=== PATIENT | female | born 1950 | race Caucasian/White ===

== ENCOUNTER 2018-06-18 00:38 | Outpatient (CLI) | payer BC, SELFPAY ==
--- NOTE | 2018-06-18 13:31 | DI.REPORT_ITS ---
SYMPTOM/DIAGNOSIS: F/U ADULT IDIOPATHIC GENERALIZED OSTEOPOROSIS, M81.8 DEXA SCAN: Routine examination. Comparison is made with 2016. Evaluation of the left hip shows a total T score of -2.0 and a Z score of -0.7. This is consistent with osteopenia and an increased fracture risk. This compares with a total T score of -2.2 from 2016. Evaluation of the lumbar spine shows a total T score of - 1.9 and a Z score of -0.1. This is also consistent with osteopenia and an increased fracture risk. This compares with a total T score of -1.8 from 2016. The lateral view of the spine shows no compression deformities. IMPRESSION: Osteopenia in the lumbar spine and left hip.
== END 2018-06-18 00:39 ==
PROVIDERS: PCP Family Medicine; Visit Provider Nurse Practitioner
DX: M85.88 Other specified disorders of bone density and structure, other site (principal)
CPT/HCPCS: 77080

== ENCOUNTER 2018-11-01 09:13 | Outpatient (CLI) | payer BC, SELFPAY ==
[2018-11-01 10:48] LABS: Anion Gap 7.9 mmol/L (3-11); BUN 16 mg/dL (7-18); CO2 30.1 mmol/L (21.0-32.0); CREATININE 0.67 mg/dL (0.55-1.02); Calcium 9.3 mg/dL (8.5-10.1); Chloride 102 mmol/L (98-107); Glucose 130 mg/dL (70-100); Potassium 4.5 mmol/L (3.5-5.1); Sodium 140 mmol/L (136-145)
== END 2018-11-01 09:33 ==
PROVIDERS: PCP Family Medicine; Visit Provider Dermatology
DX: L64.9 Androgenic alopecia, unspecified (principal); Z79.899 Other long term (current) drug therapy
CPT/HCPCS: 36415; 80048

== ENCOUNTER 2018-11-11 16:27 | Outpatient (CLI) | payer BC, SELFPAY ==
[2018-11-11 20:13] LABS: Cholesterol 206 mg/dL (50-200); HDL Cholesterol 68 mg/dL (40-60); LDL CHOLESTEROL 110 mg/dL (<100); Triglyceride 154 mg/dL (30-150)
[2018-11-11 21:06] LABS: Hemoglobin A1C 5.6 % (4.5-6.2)
== END 2018-11-11 16:47 ==
PROVIDERS: PCP Family Medicine; Visit Provider Family Medicine
DX: R73.03 Prediabetes (principal); E78.5 Hyperlipidemia, unspecified
CPT/HCPCS: 36415; 80061; 83721; 83036

== ENCOUNTER 2019-03-12 11:38 | Outpatient (CLI) | payer BC, SELFPAY ==
[2019-03-12 12:51] LABS: Abs Immature Grans 0.02 k/cumm (0.0-0.09); Absolute Basophil Count 0.02 k/cumm (0.0-0.2); Absolute Eosinophil Count 0.11 k/cumm (0.0-0.7); Absolute Lymphocyte Count 2.59 k/cumm (1.2-3.4); Absolute Monocyte Count 0.61 k/cumm (0.11-0.7); Absolute Neutrophil Count 4.27 k/cumm (1.2-6.7); Basophils % 0.3; Eosinophils % 1.4; HCT 42.3 % (36.0-46.0); HGB 13.9 g/dL (12.0-15.5); Immature Grans % 0.3; Mean Corp. HGB Concentration 32.9 g/dL (32.0-36.0); Mean Corpuscular Hemoglobin 31.4 pg (27.0-33.0); Mean Corpuscular Volume 95.7 fL (80-95); Mean Platelet Volume 10.2 fL (8.0-11.0); Platelet Count 254 x1000/uL (130-400); RBC 4.42 m/cumm (4.00-5.20); RBC Distribution Width 13.3 % (11.7-14.6); White Blood Cell Count 7.62 k/cumm (4.4-10.8)
[2019-03-12 13:07] LABS: ALT 39 U/L (12-78); AST 19 U/L (15-37); Albumin 3.8 g/dL (3.4-5.0); Alkaline Phosphatase 46 U/L (46-116); Anion Gap 4.4 mmol/L (3-11); BUN 16 mg/dL (7-18); Bilirubin, Total 0.3 mg/dL (0.2-1.0); CO2 33.6 mmol/L (21.0-32.0); CREATININE 0.76 mg/dL (0.55-1.02); Calcium 9.1 mg/dL (8.5-10.1); Chloride 101 mmol/L (98-107); Glucose 108 mg/dL (70-100); Potassium 4.9 mmol/L (3.5-5.1); Sodium 139 mmol/L (136-145); TSH (W/Ref FT4) 1.74 uIU/mL (0.358-3.74); Total Protein 6.8 g/dL (6.4-8.2)
[2019-03-12 14:12] LABS: Bilirubin Negative (Negative); Blood Negative (Negative); Clarity Cloudy; Glucose Negative (Negative); Ketones Negative (Negative); Leukocyte Esterase Negative (Negative); Nitrite Negative (Negative); Specific Gravity 1.015 (1.005-1.025); Urobilinogen 0.2 EU/dL (Up TO 0.2); pH 8.5 (5-8)
== END 2019-03-12 11:58 ==
PROVIDERS: PCP Family Medicine; Visit Provider Family Medicine
DX: R53.83 Other fatigue (principal)
CPT/HCPCS: 36415; 80053; 81003; 84443; 85025

== ENCOUNTER 2019-04-02 01:39 | Outpatient (CLI) | payer BC, SELFPAY ==
--- NOTE | 2019-04-02 07:00 | DI.US_ITS ---
SYMPTOM/DIAGNOSIS: ABD DISTENSION, FATIGUE, R14.0 ABDOMEN ULTRASOUND: Comparison is made with 07/25/16. The liver is normal in size and echogenicity. No focal liver lesions or biliary dilatation is seen. The gallbladder is unremarkable, without evidence of stones or wall thickening. There is minimal dilatation of the right intrarenal collecting system which appears stable when compared with previous ultrasound and previous IVP. The kidneys are normal in size and show normal parenchymal thickness and echogenicity. An incidental calcification is seen in the spleen is normal in size. The left kidney is unremarkable. No ascites is seen. IMPRESSION: No acute abnormality.
== END 2019-04-02 01:59 ==
PROVIDERS: PCP Family Medicine; Visit Provider Family Medicine
DX: R14.0 Abdominal distension (gaseous) (principal); R53.83 Other fatigue
CPT/HCPCS: 76700

== ENCOUNTER 2019-04-03 00:56 | Outpatient (CLI) | payer BC, SELFPAY ==
--- NOTE | 2019-04-03 10:55 | DI.MAMMO_ITS ---
SYMPTOMS/DIAGNOSIS: SCREENING MAMMOGRAMS: Mammograms were interpreted according to the usual protocol including computer analysis with CAD system, tomosynthesis and C view imaging. The breast tissue is of moderate radiodensity. There is no evidence of a mass. There are no suspicious calcifications and there has been no significant interval change when compared with the prior images. SUMMARY: No evidence of malignancy, category 1. Annual screening mammography is recommended. Breast density category B. MQSA ASSESSMENT OF FINDINGS: Negative. Category 1. Patient will receive a letter notifying them of these results. BI-RADS category B. There are scattered areas of fibroglandular density.
[2019-04-03 12:16] LABS: Magnesium 1.9 mg/dL (1.8-2.4)
== END 2019-04-03 01:16 ==
PROVIDERS: PCP Family Medicine; Visit Provider Family Medicine
DX: R53.83 Other fatigue (principal); Z12.31 Encounter for screening mammogram for malignant neoplasm of breast
CPT/HCPCS: 36415; 77063; 77067; 83735

== ENCOUNTER 2019-04-29 00:18 | Outpatient (CLI) | payer BC, SELFPAY ==
--- NOTE | 2019-04-29 09:48 | DI.MRI_ITS ---
SYMPTOMS/DIAGNOSIS: RIGHT SHOULDER PAIN, M25.511, OTHER SHOULDER LESIONS, M75.81, ? RIGHT ROTATOR CUFF TEAR MRI OF THE RIGHT SHOULDER: No plain films are available for comparison. Proton density and fat-suppressed T2 axial and coronal and T1 and fat-suppressed T2 sagittal sequences were performed. There is some spurring at the tip of the acromion. There are no significant degenerative changes of the AC joint. There is a full-thickness tear of the supraspinatus tendon with retraction to the level of the tip of the acromion. There is mild muscular atrophy of the supraspinatus, Goutallier grade 2. The infraspinatus, subscapularis and teres minor tendons appear intact. There is some thickening of the long head of the biceps tendon proximally but no focal tear. There is no joint effusion. There is minimal fluid in the subacromial-subdeltoid bursa. A subchondral cyst is seen in the humeral head. IMPRESSION: Full-thickness tear of the supraspinatus tendon and mild muscular atrophy.
== END 2019-04-29 00:38 ==
PROVIDERS: PCP Family Medicine; Visit Provider Student in an Organized Health Care Education/Training Program
DX: M25.511 Pain in right shoulder (principal); M75.81 Other shoulder lesions, right shoulder; M75.101 Unspecified rotator cuff tear or rupture of right shoulder, not specified as traumatic
CPT/HCPCS: 73221

== ENCOUNTER 2019-05-20 00:55 | Outpatient (CLI) | payer BC, SELFPAY ==
--- NOTE | 2019-05-20 15:01 | DI.MRI_ITS ---
SYMPTOMS/DIAGNOSIS: LEFT SHOULDER PAIN AND WEAKNESS X 1 YEAR, M75.82, LEFT SHOULDER LESIONS LEFT SHOULDER MRI: MRI examination of the shoulder was performed according to the usual protocol. Mild hypertrophic spurring noted at the acromioclavicular joint. Subchondral cysts noted at the greater tuberosity of the humerus. Minimal marginal osteophyte formation noted at the glenoid. Glenoid labrum is not well visualized. No gross tear identified on the images obtained. The biceps tendon is displaced anteriorly from the bicipital groove and shows an apparent longitudinal split tear. No retraction. The biceps anchor appears grossly intact. There is a full-thickness supraspinatus tear with retraction by approximately 2 to 2.5 cm. Non-retracted attachment tear of infraspinatus tendon appears to be present as well superiorly. Subscapularis tendinosis noted without evidence of a discrete tear. Teres minor superior edge appears frayed on the T2 coronal fat-sat images. CONCLUSION: 1. Rotator cuff tear involving predominantly supraspinatus and infraspinatus with retraction of supraspinatus by 2 to 2.5 cm. Goutallier grade 1, some fat streaks present in musculature. 2. Moderate degenerative changes of glenohumeral and acromioclavicular joints.
== END 2019-05-20 01:15 ==
PROVIDERS: PCP Family Medicine; Visit Provider Student in an Organized Health Care Education/Training Program
DX: M75.82 Other shoulder lesions, left shoulder (principal); M25.512 Pain in left shoulder; M75.102 Unspecified rotator cuff tear or rupture of left shoulder, not specified as traumatic; M19.012 Primary osteoarthritis, left shoulder
CPT/HCPCS: 73221

== ENCOUNTER 2019-06-09 14:32 | Outpatient (CLI) | payer BC, SELFPAY ==
--- NOTE | 2019-06-09 11:27 | DI.RAD_ITS ---
SYMPTOM/DIAGNOSIS: EVAL LT HIP IMPINGEMENT LEFT HIP: Two views. No bone or joint abnormality is identified. The soft tissues are unremarkable. IMPRESSION: Negative left hip
--- NOTE | 2019-06-09 11:27 | DI.RAD_ITS ---
SYMPTOM/DIAGNOSIS: RT HIP PAIN RIGHT HIP: Two views. The joint space is well maintained. No bone or joint abnormality is identified. There is a small calcification adjacent to the greater trochanter which appears old. The soft tissues are otherwise unremarkable. IMPRESSION: Negative right hip
== END 2019-06-09 14:52 ==
PROVIDERS: PCP Family Medicine; Visit Provider Student in an Organized Health Care Education/Training Program
DX: M25.851 Other specified joint disorders, right hip (principal); M25.852 Other specified joint disorders, left hip; M25.551 Pain in right hip
CPT/HCPCS: 73502

== ENCOUNTER 2019-07-15 08:59 | Outpatient (CLI) | payer BC, SELFPAY ==
--- NOTE | 2019-07-15 18:50 | HPE_ITS ---
Date of service: 07/15/19 Assessment and Plan (1) Right rotator cuff tear: Current visit: Yes Status: Acute Arthroscopic right rotator cuff repair. Details of surgery were discussed with patient as well as risks and pertinent anatomy. All questions were answered. Qualifiers: Rotator cuff tear extent: complete Rotator cuff tear trauma status: nontraumatic Qualified Code(s): M75.121 - Complete rotator cuff tear or rupture of right shoulder, not specified as traumatic History of Present Illness Chief Complaint: Right shoulder pain Narrative: Daksha is a 68-year-old female who comes in today for a preoperative visit for a right rotator cuff repair. She has had right shoulder pain for quite some time, and is actually finding it difficult to use her right arm at this time. She has difficulty bringing her arm up overhead, but the most pain that she has is really during the nighttime. She has difficulty sleeping because of the shoulder pain. Even before her shoulder pain, she did need trazodone in order to get a good night sleep, but even with the trazodone her right shoulder pain does keep her from sleeping. She has tried conservative treatment including injection therapy and physical therapy, neither of which provided long-term relief. MRI did confirm a rotator cuff tear on the right shoulder. Since she has failed conservative therapy, Dr. Gonzalez does offer a right rotator cuff repair, and she is anxious to proceed with the procedure. Pertinent Surgical Information Daksha states that she has actually been watching her blood sugars as a prediabetic, however her hemoglobin A1c is according to her have run less than 6.0. She also states that she has a history of sleep apnea for which she uses a CPAP machine. Her sleep apnea is mild, and she often goes without her CPAP machine at night. Patient denies history of hypertension, CVA, CT, angina, asthma, COPD, renal or liver disorders, hepatitis, bleeding disorders, immune or thyroid disorders. No complications from anesthesia. Review of Systems Constitutional Denies fever(s) ENT Denies dizziness and Denies sore throat Cardiovascular Denies chest pain, Denies palpitations and Denies dyspnea Respiratory Denies cough and Denies dyspnea Gastrointestinal Denies abdominal pain, Denies melena, Denies hematochezia, Denies diarrhea, Denies nausea and Denies vomiting Genitourinary Denies hematuria and Denies dysuria Neurologic Denies dizziness Endocrine Denies palpitations [facility] Medical History Allergic rhinitis Anxiety Asthma, exercise induced Depression Osteoarthritis Surgical History Appendectomy Colonoscopy - IV Sedation 11/23/10 05/24/15 History of cataract surgery (Chronic) Hx of eye surgery (Acute) bilat eyelid surgery Nose Surgery Tonsillectomy and adenoidectomy Tooth extraction WISDOM TEET EXTRACTION wisdom teeth extraction Family History Mother , 83 Diabetes Atrial fibrillation Stroke Asthma Father , 70 Alcohol abuse Heart disease Hyperthyroidism Mental disorder Depression Hyperlipidemia COPD (chronic obstructive pulmonary disease) Son Alcohol abuse Depression Hypertension Substance abuse Son No problems noted. Son No problems noted. Maternal Grandmother , 80? Depression Maternal Grandfather , 80? Alcohol abuse Paternal Grandfather , 74 Alcohol abuse Maternal Grandmother , 74 Mental disorder [place]ERNAL H[place]ORY [place] (hard of hearing) Alzheimers disease [place] Glaucoma Social History Smoking/Tobacco Use Status: Former Tobacco Use Quit Date: 11/12/14 Second Hand Exposure: Yes Alcohol Intake: former Drug use: Occasionally Substance use type: marijuana Details: Pt states stopped ETOH 12/2017 Caregiver/Support person: No Household members: other Details: 1 son Housing: house Communication Needs: Corrective Lenses Do you need help understanding health information?: Rarely Pets and animals: No Sexually active: No Do you think of yourself as: straight/heterosexual Current gender identity: female What is your relationship status?: How often do you talk on the phone with friends or family?: twice per week How often do you get together with friends or relatives?: decline to answer How often do you attend muslim or holiness services?: decline to answer Do you belong to any clubs or organized social groups?: no Panel score (0-1 are the most socially isolated patients): 0 Duration: 30-45 minutes/day Frequency: 3-4 times per week Gloria/Tenriism: Unitarian Universalist Special gloria needs: No Seatbelt use: always Helmet use: Yes Helmet use: sometimes Drive intox or ride w/intox cryogenic transport driver: No Do you feel safe at home: Yes Meds Home Medications Medication Instructions Recorded Confirmed Type blood-glucose meter #1 unit 04/21/15 06/09/19 History milk thistle seed extract 175 mg PO #2 10/09/17 06/09/19 History albuterol sulfate [Proair Hfa] 2 puff INHALATION ONCE #1 inhaler 12/13/17 07/15/19 Rx calcium carbonate [Calcium] 500 mg PO DAILY 12/13/17 07/15/19 History magnesium oxide 250 mg PO DAILY #30 tab-cap 12/13/17 07/15/19 Rx naltrexone 50 mg tablet 50 mg PO HS #90 tab 07/22/18 07/15/19 Rx riboflavin (vitamin B2) 400 mg 400 mg PO DAILY 09/03/18 07/15/19 History tablet montelukast 10 mg tablet 10 mg PO HS #90 tab-cap 10/01/18 07/15/19 Rx blood sugar diagnostic #100 strip 10/29/18 06/09/19 Rx blood-glucose meter #1 each 10/29/18 06/09/19 Rx lancets #100 ea 10/29/18 06/09/19 Rx sertraline 50 mg tablet 50 mg PO HS #90 tab-cap 12/18/18 07/15/19 Rx trazodone 50 mg tablet 100 mg PO HS #180 tab-cap 12/24/18 07/15/19 Rx cyclosporine 0.1 %-chondroitin drp OP BID ml 03/24/19 06/09/19 History sulfate A 0.25 % eye drops finasteride 5 mg tablet 5 mg PO HS 05/02/19 07/15/19 History fluticasone propionate 50 1 spray GLORY DAILY #47.4 gm 06/08/19 07/15/19 Rx mcg/actuation nasal spray,suspension cholecalciferol (vitamin D3) 5,000 5,000 unit PO DAILY 06/09/19 07/15/19 History unit capsule Allergies Allergy/AdvReac Type Severity Reaction Status Date / Time bupropion HCl AdvReac Unknown MENTAL Unverified 07/15/19 09:12 [From Wellbutrin] FOGGING cashews Allergy Severe anaphalaxis Uncoded 07/15/19 09:12 ENVIRONMENTAL Allergy Unknown Uncoded 07/15/19 09:12 Exam HENMT Head: normocephalic and atraumatic General nose exam: no nasal discharge Throat: uvula midline and no uvular edema Other: soft palate rises symmetrically, no erythema Eyes Conjunctivae: conjunctivae normal Sclera: sclerae normal Pupils: PERRL Resp Effort & Inspection: normal respiratory effort Auscultation: clear to auscultation bilaterally and no wheezes Cardio Rate: regular rate Rhythm: regular rhythm Heart Sounds: S1 normal, S2 normal and no murmurs GI Palpation: soft, no hepatosplenomegaly and nontender Auscultation: normal bowel sounds
== END 2019-07-15 09:19 ==
PROVIDERS: PCP Family Medicine; Visit Provider Student in an Organized Health Care Education/Training Program
DX: M75.101 Unspecified rotator cuff tear or rupture of right shoulder, not specified as traumatic (principal); Z01.818 Encounter for other preprocedural examination
CPT/HCPCS: NC

== ENCOUNTER 2019-07-23 06:06 | Day surgery (SDC) | payer BC, SELFPAY ==
[2019-07-23] VITALS (8 sets, daily range): BP systolic 85–112; BP diastolic 41–77; PULSE 65–85; RESP 12–24; TEMP 36.3–36.6; O2SAT 91–97
[2019-07-23] MEDS: Lactated Ringers 1,000 ML 80 ML IV (06:37)
--- NOTE | 2019-07-23 07:20 | W.PM.DSUDISC ---
Discharge Plan Disposition Patient Disposition: HOME Condition: Good Discharge Details Reason For Visit: R RTC Tear Attending Provider: Darvin Gonzalez Primary Care Provider: Talat Manuel Home Meds and New Rx's Prescriptions: New acetaminophen 500 mg tablet 1,000 mg PO Q8H PRN (Reason: pain) Qty: 90 RF: 3 ibuprofen 600 mg tablet 600 mg PO TID PRNQty: 90 RF: 3 diazepam 5 mg tablet 5 mg PO Q8H PRN (Reason: pain and spasm) Qty: 12 RF: 0 Continued riboflavin (vitamin B2) 400 mg tablet 400 mg PO DAILY RF: 0 trazodone 50 mg tablet 100 mg PO HS Qty: 180 RF: 3 Cyclosporine in Klarity 0.1-0.25 % drops OP BID RF: 0 cholecalciferol (vitamin D3) 5,000 unit capsule 5,000 unit PO DAILY RF: 0 finasteride 5 mg tablet 5 mg PO HS RF: 0 (DME) blood-glucose meter 1 EACH misc 1 ea Miscellaneous DAILY Qty: 1 RF: 0 milk thistle seed extract 175 MG capsule 175 mg PO Qty: 2 RF: 0 calcium carbonate [Calcium 500] 500 MG tablet 500 mg PO DAILY RF: 0 magnesium oxide 250 MG tablet 250 mg PO DAILY Qty: 30 RF: 12 albuterol sulfate [ProAir HFA] 8.5 GM HFA aerosol inhaler 2 puff Inhalation ONCE Qty: 1 RF: 12 naltrexone 50 mg tablet 50 mg PO HS Qty: 90 RF: 4 montelukast 10 mg tablet 10 mg PO HS Qty: 90 RF: 3 (DME) Blood Glucose Test strip 1 ea Miscellaneous DAILY Qty: 100 RF: 3 (DME) blood-glucose meter [Pathbrite Autocode Monitor Syst] misc See Dose Instructions .ROUTE .MEDSUPPLY Qty: 1 RF: 0 (DME) lancets [OneTouch UltraSoft Lancets] misc 1 ea Miscellaneous DAILY Qty: 100 RF: 3 sertraline 50 mg tablet 50 mg PO HS Qty: 90 RF: 3 fluticasone propionate [Flonase Allergy Relief] 50 mcg/actuation spray,suspension 1 spray GLORY DAILY Qty: 47.4 RF: 3 Discharge Instructions Additional Instructions: Since you are taking Naltrexone (a ricardo of opiate receptors), opiate pain medications will not be very effective. You should be able to control pain with ice, Ibuprofen, and Tylenol. However, if you are having pain beyond this, Diazepam has been prescribed which can help with pain and muscle spasm. Stand Alone Forms: Carlos matthew/RCR Referrals: Darvin Gonzalez MD [ [facility] STAFF PHYSICIAN] - Equipment/Supplies: Sling Activity:: In sling except for hygiene and pendulums Remove Dressings/Wound Care:: 72 hours Shower/Bathe:: 72 hours Diet:: As Tolerated Discharge Orders Discharge Orders: Discharge Order (Routine); Ordered 07/23/19 Ordered By: Darvin Gonzalez DS: Diagnosis Discharge Diagnosis (1) Right rotator cuff tear: Status: Acute
[2019-07-23] MEDS: Bupivacaine 0.5% Pres-Free 30 ML VIAL (07:24)
[2019-07-23] MEDS: Bupivacaine LIPOSOME/PF 133 MG/10 ML VIAL IJ (07:24)
[2019-07-23] MEDS: ceFAZolin 2 GM/50 ML BAG IVPB (07:35)
[2019-07-23] MEDS: Bupivacaine 0.25% Pres-Free 30 ML VIAL (08:40)
[2019-07-23] MEDS: oxyCODONE 5 MG TAB PO (10:52)
[2019-07-23] MEDS: Acetaminophen 325 MG TAB 650 MG PO (11:50)
--- NOTE | 2019-07-23 21:02 | ROE_ITS ---
Date of service: 07/23/19 Time of Service: 10:02 Operative Note Operative Note DATE OF PROCEDURE: 07/23/19 PRE-OP DIAGNOSIS: Right Rotator Cuff Tear, Right SLAP Tear POST-OP DIAGNOSIS: same PROCEDURE: - Arthroscopic Rotator Cuff Repair - Extensive debridement of anterior and posterior glenohumeral joint and rotator cuff - Sub-pectoral biceps tenodesis SURGEON: Darvin Gonzalez ONE PIECE EXPANSION MAKER HAND: Gonzalo Javed ANESTHESIA: GETA and regional ESTIMATED BLOOD LOSS: 0 PATHOLOGY: none sent COMPLICATIONS: None Patient was transported to: PACU Patient's condition: stable Indications: I have seen Daksha in clinic for a painful shoulder. Pathology was confirmed based on MRI and exam findings. Nonoperative measures were exhausted but disability and pain persisted. I discussed shoulder arthroscopy and procedures. I reviewed the risks of the procedures to include, but not limited to, bleeding, infection, pain, stiffness, damage to nerves or vessels, recurrence, hardware failure, blood clot. Despite these risks, the patient elected to proceed. Findings: A diagnostic arthroscopy was performed with the following findings: - Glenohumeral Joint: No significant arthritic changes - Labrum: Fraying of the anterior labrum and tearing of the superior labrum at the anchor of the biceps tendon - Cuff: Complete tear of the supraspinatus and infraspinatus - Biceps: Inflammatory changes and partial tearing at the level of the group. - Subacromial: Complete tear of the rotator cuff, small anterolater spur Procedure Description: Daksha was greeted in the preoperative holding area where the correct side was identified and marked. The consent was reviewed with the patient and signed. The history and physical was updated. All questions were answered. Daksha was taken back to the PACU for administration of an intrascalene nerve block. She was then taken to the operating room. The patient was placed into the supine position on the operating room table. A general anesthetic was administered. She was then positioned in the beach chair position. All bony prominences were well padded. The head was placed in a foam quality head in a neutral position. Prophylactic antibiotics in the form of Cefazolin were administered. The RIGHT arm/shoulder was then prepped with Chloraprep and draped in a standard fashion with stockinette and shoulder drape. A timeout to confirm correct identity, side and site, procedure, allergies, anesthesia, and medical concerns was performed. The arm was placed into a pneumatic ramirez, [id number]. The shoulder arthroscopy was then performed. The glenohumeral joint was injected with 20 cc of normal saline with good flow back. A standard posterior portal was made and the joint was entered atraumatically with a blunt arthroscope. Once inside we had good visualization of the structures of the glenohumeral joint. An anterior portal was established with spinal needle localization. A 6.5 mm cannula was inserted. A probe was then used to perform a diagnostic arthroscopy. There is noted to be no significant cartilage damage of the glenoid humeral joint. The labrum was mildly frayed anteriorly and torn superiorly off of the glenoid at the level of the anchor. There were no loose bodies in the inferior pouch. The superior rotator cuff was completed torn. The biceps tendon had some inflammatory changes and partial tearing. The subscapularis was intact. Extensive debridement was performed of the frayed anterior labrum. The biceps tendon was tenotomized with electrocautery device for later tenodesis. Some of the fraying and inflammatory changes seen around the undersurface the rotator cuff were also debrided posteriorly and anteriorly. The biceps tenodesis was then performed. With the arm and some slight external rotation abduction pectoralis major tendon was identified. A 2 cm incision was made overlying the insertion to the humerus. Sharp dissection was carried onto the skin. Blunt dissection was carried down to the fascia the biceps musculature. This was entered with a tenotomy scissors. The biceps groove was palpable and the biceps tendon was palpable. It was withdrawn from the wound using Allis clamp and finger dissection. Once the biceps tendon was out of the arm the biceps groove was prepared using a rasp. A Mitek Lupine anchor was inserted into the biceps groove at the level of the pectoralis major insertion. This was tested to make sure had excellent fixation into the bone. Using a free needle I then placed a locking Krak?w stitch and each side of the biceps tendon using one limb from each suture at the level of the muscular tendinous junction and moving proximally. Excess tendon was then cut. Using the free suture limb I then shuttled the tendon down to the prepared surface of the humerus. It laid flat against the humerus. It was at the level of the pectoralis major tendon. The suture limbs were then tied. The wound was irrigated. The subcutaneous tissue was reapproximated with a 2-0 Vicryl. The arthroscope was then inserted into the subacromial space. The 6.5 mm cannula was placed lateral to the CA ligament. A complete bursectomy is performed anteriorly, posteriorly, and laterally with electrocautery and shaver. This had excellent exposure of the rotator cuff. 2 lateral portals were established. An anterolateral portal was used for working in the posterior lateral portal was used for viewing. The bursal side rotator cuff was notable for a complete rotator cuff tear in a crescent shape with a portion of anterior supra spinatus still attached. There was a small anterior lateral spur. The edge of the rotator cuff was debrided. The footprint was investigated and also debrided with the shaver. I then placed 2 Medial Row, Mitek Healix anchors. 4 horizontal mattress sutures were then placed. These were tied using standard arthroscopic knot tying techniques. The plan was then to place 2 Lateral Row anchors. Unfortunately, the bone quality is quite poor. I tried to place a lateral ankle but there is no good purchase in the bone and therefore this was aborted. The scope equipment was removed from the shoulder. Excess fluid was evacuated. The portal sites were closed with 3-0 Monocryl. The wounds were dressed with Steri-Strips, 4 x 4's, ABDs, Medipore tape. A sling was applied. The patient tolerated the procedure well and was returned to the Same Day Surgery area in a stable condition suffering no known complication.
== END 2019-07-23 12:35 | disposition home or self-care (01) ==
PROVIDERS: PCP Family Medicine; Visit Provider Student in an Organized Health Care Education/Training Program
PROC: (CPT 29827; principal; 2019-07-23 07:30)
DX: M75.121 Complete rotator cuff tear or rupture of right shoulder, not specified as traumatic (principal); S43.431A Superior glenoid labrum lesion of right shoulder, initial encounter; X58.XXXA Exposure to other specified factors, initial encounter; M75.21 Bicipital tendinitis, right shoulder; M75.81 Other shoulder lesions, right shoulder; G89.18 Other acute postprocedural pain; R73.03 Prediabetes; G47.33 Obstructive sleep apnea (adult) (pediatric)
CPT/HCPCS: 23430; 29827; 29823; C1713; 76942; J0690; J1100; J1885; J2250; J2370; J2405; L3670

== ENCOUNTER 2019-09-01 09:59 | Outpatient (CLI) | payer BC, SELFPAY ==
--- NOTE | 2019-09-01 09:27 | DI.RAD_ITS ---
EXAM: XR CERVICAL SPINE COMP 4-5V INDICATION: eval neck pain. COMPARISON: No exams were available for comparison TECHNIQUE: 2D digital imaging was performed. FINDINGS: Reversal of the normal cervical lordosis is demonstrated. There is disc narrowing, discogenic sclero sis and hypertrophic spurring involving C5 through C7-T1. A 5 mm anterior listhesis of C4 on C5 is d emonstrated. There is moderate compromise of the C5-C6 and C6-C7 neural foramina bilaterally by hype rtrophic spurring. Severe facet joint DJD is demonstrated throughout, the cervical spine most advanc ed at C5 through C7-T1. The posterior elements are intact. The prevertebral soft tissues are unrema rkable. The odontoid is intact and is closely applied to the anterior arch of C1. IMPRESSION: Findings consistent with severe DJD and degenerative disc disease with reversal of the normal cervic al lordosis. Please see the above discussion.
== END 2019-09-01 10:19 ==
PROVIDERS: PCP Family Medicine; Visit Provider Student in an Organized Health Care Education/Training Program
DX: M54.2 Cervicalgia (principal); M50.322 Other cervical disc degeneration at C5-C6 level; M50.323 Other cervical disc degeneration at C6-C7 level; M47.812 Spondylosis without myelopathy or radiculopathy, cervical region
CPT/HCPCS: 72050

== ENCOUNTER 2019-10-13 10:34 | Outpatient (CLI) | payer BC, SELFPAY ==
--- NOTE | 2019-10-13 09:27 | DI.RAD_ITS ---
EXAM: XR SHOULDER RT COMPLETE 2+V INDICATION: fall s/p right RTC repair. COMPARISON: No exams were available for comparison TECHNIQUE: 2D digital imaging was performed. FINDINGS: There is an orthopedic anchor in the humeral head. Bones are intact and normally mineralized. The a cromioclavicular and glenohumeral joints appear well maintained. The soft tissues are unremarkable.
== END 2019-10-13 10:54 ==
PROVIDERS: PCP Family Medicine; Visit Provider Physician Assistant
DX: M75.121 Complete rotator cuff tear or rupture of right shoulder, not specified as traumatic (principal); Z98.890 Other specified postprocedural states; M25.511 Pain in right shoulder; W19.XXXA Unspecified fall, initial encounter
CPT/HCPCS: 73030

== ENCOUNTER 2019-10-21 01:51 | Outpatient (CLI) | payer BC, SELFPAY ==
[2019-10-21 13:04] LABS: Hemoglobin A1C 5.4 % (4.5-6.2)
== END 2019-10-21 02:11 ==
PROVIDERS: PCP Family Medicine; Visit Provider Family Medicine
DX: R73.03 Prediabetes (principal)
CPT/HCPCS: 36415; 83036

== ENCOUNTER 2019-10-21 12:18 | Outpatient (CLI) | payer BC, SELFPAY ==
--- NOTE | 2019-10-21 12:15 | DI.MRI_ITS ---
EXAM: MR UPPER JOINT RT WO CLINICAL HISTORY: patient had fall now having pain again, s/p rt rotator cuff repair, Z98.890. TECHNIQUE: Multiplanar multisequence MRI was performed. FINDINGS: Multiple surgical anchors are seen in the humeral head. There is a full-thickness tear of the supras pinatus tendon with retraction of approximately 15 millimeters. There is supraspinatus muscle atroph y and some fatty replacement, Goutallier grade 3. The infraspinatus appears intact. Upper portion o f the long head of the biceps tendon is not seen. There is a moderate quantity of joint fluid. Ther e is fluid in the subcoracoid bursa and subacromial-subdeltoid bursa. Degenerative changes are seen at the superior labrum. IMPRESSION: Full-thickness tear with retraction and muscle atrophy of the supraspinatus tendon. Question of a te ar of the proximal long head of the biceps tendon.
--- NOTE | 2019-10-21 13:15 | DI.MRI_ITS ---
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 TECHNIQUE: Multiplanar multisequence MRI was performed. COMPARISON: XR CERVICAL SPINE COMP 4-5V from 09/01/2019 FINDINGS: The cord signal is normal. The C2-3 level is unremarkable. At C3-4, there are small endplate osteop hytes and minimal disc bulging. There are facet degenerative changes throughout causing some reversa l of the normal cervical lordosis. There is mild spondylolisthesis at C4-5. There is mild loss of h eight of the C4-5 disc. There is mild neural foraminal narrowing. At C5-6, there is severe narrowin g of the disc and prominent osteophytes causing severe right and moderate to severe left neural kyrie inal narrowing. Small disc osteophytes are seen at C6-7. There is mild bilateral neural foraminal n arrowing. At C7-T1, there is also loss of disc height and disc osteophytes projecting circumferentia lly causing severe bilateral neural foraminal narrowing. Mild degenerative disc changes are seen at T1-2 and T2-3. There are degenerative signal changes in the endplates seen from C5-6 through C7-T1. IMPRESSION: Degenerative disc changes and facet degenerative changes combine to produce bilateral neural foramina l narrowing from C5-6 through C7-T1. No disc herniation is seen at any level.
== END 2019-10-21 12:38 ==
PROVIDERS: PCP Family Medicine; Visit Provider Student in an Organized Health Care Education/Training Program
DX: R20.2 Paresthesia of skin (principal); M47.812 Spondylosis without myelopathy or radiculopathy, cervical region; M43.12 Spondylolisthesis, cervical region; M50.322 Other cervical disc degeneration at C5-C6 level; M50.33 Other cervical disc degeneration, cervicothoracic region; M25.511 Pain in right shoulder; M75.101 Unspecified rotator cuff tear or rupture of right shoulder, not specified as traumatic; M62.511 Muscle wasting and atrophy, not elsewhere classified, right shoulder; Z98.890 Other specified postprocedural states
CPT/HCPCS: 72141; 73221

== ENCOUNTER 2019-10-31 05:55 | Day surgery (SDC) | payer BC, SELFPAY ==
[2019-10-31] VITALS (9 sets, daily range): BP systolic 74–117; BP diastolic 37–62; PULSE 63–76; RESP 12–20; TEMP 36.4–36.9; O2SAT 93–97
[2019-10-31] MEDS: Lactated Ringers 1,000 ML 80 ML IV ×2 (06:45→11:15)
--- NOTE | 2019-10-31 07:13 | W.PREOPHP ---
Date of service: 10/31/19 Time of Service: 07:13 Assessment and Plan Assessment and plan (1) Complete tear of right rotator cuff: Status: Acute Assessment and plan: Daksha is a 69-year-old who has a re-tear of her right rotator cuff. I reviewed treatment options with Daksha. Given the failure of conservative options she desires to proceed with surgical intervention. I reviewed the risk of the procedure to include bleeding, infection, pain, stiffness, re-tear, hardware prominence, anchor failure, need for repeat procedures. Despite these risk, she elects to proceed. Qualifiers: Rotator cuff tear trauma status: traumatic Encounter type: subsequent encounter Qualified Code(s): S46.011D - Strain of muscle(s) and tendon(s) of the rotator cuff of right shoulder, subsequent encounter (2) Status post right rotator cuff repair: Status: Acute History of Present Illness History of Present Illness Chief Complaint: Right Shoulder Pain and Weakness Narrative: Daksha is a 69-year-old who continues have right shoulder pain and weakness. She had rotator cuff repair just over 3 months ago. She was doing well until she had and a near fall episode and since that point has had pain. She has tried conservative treatment ice but continues have pain and weakness. She had an MRI of the right shoulder which demonstrated re-tear of the rotator cuff in the right shoulder. She has no complaints of chest pain or shortness of breath. [facility] Medical History Allergic rhinitis Anxiety Asthma, exercise induced Cervical spine arthritis (Acute) Depression Osteoarthritis Surgical History Appendectomy Colonoscopy - IV Sedation 11/23/10 05/24/15 History of cataract surgery (Chronic) Hx of eye surgery (Acute) bilat eyelid surgery Nose Surgery pt. states she has unsuccessful sinus sugery to help her breathing, pt. states she does not currently have trouble breathing S/P right rotator cuff repair (Acute) Tonsillectomy and adenoidectomy Tooth extraction WISDOM TEET EXTRACTION wisdom teeth extraction Family History Mother , 83 Diabetes Atrial fibrillation Stroke Asthma Father , 70 Alcohol abuse Heart disease Hyperthyroidism Mental disorder Depression Hyperlipidemia COPD (chronic obstructive pulmonary disease) Son Alcohol abuse Depression Hypertension Substance abuse Son No problems noted. Son No problems noted. Maternal Grandmother , 80? Depression Maternal Grandfather , 80? Alcohol abuse Paternal Grandfather , 74 Alcohol abuse Maternal Grandmother , 74 Mental disorder MATERNAL HISTORY BEAVER (hard of hearing) Alzheimers disease [place] Glaucoma Social History Smoking/Tobacco Use Status: Former Tobacco Use Quit Date: 11/12/14 Second Hand Exposure: Yes Alcohol Intake: former Drug use: Occasionally Substance use type: marijuana Details: Pt states stopped ETOH 12/2017 marijuana yesterday Caregiver/Support person: No Household members: other Details: 1 son Housing: house Communication Needs: Corrective Lenses Do you need help understanding health information?: Rarely Pets and animals: No Sexually active: No Do you think of yourself as: straight/heterosexual Current gender identity: female What is your relationship status?: How often do you talk on the phone with friends or family?: twice per week How often do you get together with friends or relatives?: decline to answer How often do you attend holiness or rastafari services?: decline to answer Do you belong to any clubs or organized social groups?: no Panel score (0-1 are the most socially isolated patients): 0 Duration: 30-45 minutes/day Frequency: 3-4 times per week Gloria/Holiness: Unitarian [employer]ist Special gloria needs: No Seatbelt use: always Helmet use: Yes Helmet use: sometimes Drive intox or ride w/intox special events driver: No Do you feel safe at home: Yes Do you feel safe in your relationship?: Yes Additional Social history: Pt lives with 32 year old son Meds Home Medications and Allergies Home Medications Medication Instructions Recorded Confirmed Type blood-glucose meter #1 unit 04/21/15 10/13/19 History albuterol sulfate [ProAir HFA] 2 puff INHALATION ONCE #1 inhaler 12/13/17 10/31/19 Rx calcium carbonate [Calcium 500] 500 mg PO DAILY 12/13/17 10/31/19 History magnesium oxide 250 mg PO DAILY #30 tab-cap 12/13/17 10/31/19 Rx riboflavin (vitamin B2) 400 mg 400 mg PO DAILY 09/03/18 10/31/19 History tablet blood sugar diagnostic #100 strip 10/29/18 10/13/19 Rx blood-glucose meter #1 each 10/29/18 10/13/19 Rx lancets #100 ea 10/29/18 10/13/19 Rx sertraline 50 mg tablet 50 mg PO HS #90 tab-cap 12/18/18 10/31/19 Rx trazodone 50 mg tablet 100 mg PO HS #180 tab-cap 12/24/18 10/31/19 Rx cyclosporine 0.1 %-chondroitin drp OP BID ml 03/24/19 10/13/19 History sulfate A sodium 0.25 % eye drops finasteride 5 mg tablet 5 mg PO HS 05/02/19 10/31/19 History fluticasone propionate 50 1 spray GLORY DAILY #47.4 gm 06/08/19 10/31/19 Rx mcg/actuation nasal spray,suspension cholecalciferol (vitamin D3) 5,000 5,000 unit PO DAILY 06/09/19 10/31/19 History unit capsule acetaminophen 1,000 mg PO Q8H PRN #90 tab 07/23/19 10/31/19 Rx diazepam 5 mg PO Q8H PRN #12 tab 07/23/19 10/29/19 Rx ibuprofen 600 mg PO TID PRN #90 tab 07/23/19 10/31/19 Rx montelukast 10 mg tablet 10 mg PO HS #90 tab-cap 09/25/19 10/31/19 Rx naltrexone 50 mg tablet 50 mg PO HS #90 tab 09/25/19 10/31/19 Rx Allergies Allergy/AdvReac Type Severity Reaction Status Date / Time cashew nut Allergy Severe Anaphylaxsi Unverified 10/31/19 06:06 s bupropion HCl AdvReac Unknown MENTAL Unverified 10/31/19 06:06 [From Wellbutrin] FOGGING ENVIRONMENTAL Allergy Unknown Uncoded 10/31/19 06:06 Exam Const General: cooperative, healthy appearing, comfortable and no acute distress Nutritional Appearance: average body habitus Orientation: alert, awake and oriented x3 Resp Effort & Inspection: normal respiratory effort Auscultation: clear to auscultation bilaterally Cardio Rate: regular rate Rhythm: regular rhythm Results Imaging Imaging Studies: MRI of the right shoulder demonstrates a tear of the supraspinatus. There may be some intact anterior and posterior fibers. There is been some mild retraction. There is also question of displacement of on the anchors. Last Vital Signs Temp 36.6 C 10/31/19 06:14 Pulse 63 10/31/19 06:14 Resp 18 10/31/19 06:14 BP 117/62 10/31/19 06:14 Pulse Ox 97 10/31/19 06:14
[2019-10-31] MEDS: Bupivacaine 0.5% Pres-Free 30 ML VIAL (07:36)
[2019-10-31] MEDS: Bupivacaine LIPOSOME/PF 133 MG/10 ML VIAL IJ (07:36)
[2019-10-31] MEDS: ceFAZolin 2 GM/50 ML BAG IVPB (07:48)
--- NOTE | 2019-10-31 08:15 | PDOC.DSDIS_ITS ---
Documented by User: Omaira Sanchez 10/31/19 08:24 Discharge Plan Disposition Patient Disposition: HOME Condition: Good Discharge Details Reason For Visit: RTC TEAR (R) Attending Provider: Darvin Gonzalez Primary Care Provider: Talat Manuel Home Meds and New Rx's Prescriptions: New acetaminophen 500 mg tablet 1,000 mg PO Q8H PRN (Reason: pain) Qty: 90 RF: 3 ibuprofen 600 mg tablet 600 mg PO TID PRN (Reason: pain) Qty: 90 RF: 3 diazepam 5 mg tablet 5 mg PO Q8H PRN (Reason: pain and muscle spasm) Qty: 12 RF: 0 Continued riboflavin (vitamin B2) 400 mg tablet 400 mg PO DAILY RF: 0 trazodone 50 mg tablet 100 mg PO HS Qty: 180 RF: 3 Cyclosporine in Klarity 0.1-0.25 % drops OP BID RF: 0 cholecalciferol (vitamin D3) 5,000 unit capsule 5,000 unit PO DAILY RF: 0 finasteride 5 mg tablet 5 mg PO HS RF: 0 (DME) blood-glucose meter 1 EACH misc 1 ea Miscellaneous DAILY Qty: 1 RF: 0 calcium carbonate [Calcium 500] 500 MG tablet 500 mg PO DAILY RF: 0 magnesium oxide 250 MG tablet 250 mg PO DAILY Qty: 30 RF: 12 albuterol sulfate [ProAir HFA] 8.5 GM HFA aerosol inhaler 2 puff Inhalation ONCE Qty: 1 RF: 12 (DME) Blood Glucose Test strip 1 ea Miscellaneous DAILY Qty: 100 RF: 3 (DME) blood-glucose meter [FaceAlerta Autocode Monitor Syst] misc See Dose Instructions .ROUTE .MEDSUPPLY Qty: 1 RF: 0 (DME) lancets [OneTouch UltraSoft Lancets] misc 1 ea Miscellaneous DAILY Qty: 100 RF: 3 sertraline 50 mg tablet 50 mg PO HS Qty: 90 RF: 3 fluticasone propionate [Flonase Allergy Relief] 50 mcg/actuation spray,suspension 1 spray GLORY DAILY Qty: 47.4 RF: 3 montelukast 10 mg tablet 10 mg PO HS Qty: 90 RF: 3 naltrexone 50 mg tablet 50 mg PO HS Qty: 90 RF: 4 acetaminophen 500 mg tablet 1,000 mg PO Q8H PRN (Reason: pain) Qty: 90 RF: 3 ibuprofen 600 mg tablet 600 mg PO TID PRNQty: 90 RF: 3 diazepam 5 mg tablet 5 mg PO Q8H PRN (Reason: pain and spasm) Qty: 12 RF: 0 Discharge Instructions Additional Instructions: Since you are taking Naltrexone (a ricardo of opiate receptors), opiate pain medications will not be very effective. You should be able to control pain with ice, Ibuprofen, and Tylenol. However, if you are having pain beyond this, Diazepam has been prescribed which can help with pain and muscle spasm. Please call for a refill of the Valium if needed. Stand Alone Forms: Carlos matthew/RCR Referrals: Darvin Gonzalez MD [ [facility] STAFF PHYSICIAN] - Equipment/Supplies: Sling Activity:: In sling except for hygiene and pendulums Remove Dressings/Wound Care:: 72 hours Shower/Bathe:: 72 hours Diet:: As Tolerated Discharge Orders Discharge Orders: Discharge Order (Routine); Ordered 10/31/19 Ordered By: Omaira Sanchez DS: Diagnosis Discharge Diagnosis (1) Complete tear of right rotator cuff: Status: Acute (2) Status post right rotator cuff repair: Status: Acute Documented by User: Darvin Gonzalez MD 10/31/19 10:31 Discharge Plan Disposition Patient Disposition: HOME Condition: Good Discharge Details Reason For Visit: RTC TEAR (R) Attending Provider: Darvin Gonzalez Primary Care Provider: Talat Manuel Meds and New Rx's Prescriptions: New acetaminophen 500 mg tablet 1,000 mg PO Q8H PRN (Reason: pain) Qty: 90 RF: 3 ibuprofen 600 mg tablet 600 mg PO TID PRN (Reason: pain) Qty: 90 RF: 3 diazepam 5 mg tablet 5 mg PO Q8H PRN (Reason: pain and muscle spasm) Qty: 12 RF: 0 Continued riboflavin (vitamin B2) 400 mg tablet 400 mg PO DAILY RF: 0 trazodone 50 mg tablet 100 mg PO HS Qty: 180 RF: 3 Cyclosporine in Klarity 0.1-0.25 % drops OP BID RF: 0 cholecalciferol (vitamin D3) 5,000 unit capsule 5,000 unit PO DAILY RF: 0 finasteride 5 mg tablet 5 mg PO HS RF: 0 (DME) blood-glucose meter 1 EACH misc 1 ea Miscellaneous DAILY Qty: 1 RF: 0 calcium carbonate [Calcium 500] 500 MG tablet 500 mg PO DAILY RF: 0 magnesium oxide 250 MG tablet 250 mg PO DAILY Qty: 30 RF: 12 albuterol sulfate [ProAir HFA] 8.5 GM HFA aerosol inhaler 2 puff Inhalation ONCE Qty: 1 RF: 12 (DME) Blood Glucose Test strip 1 ea Miscellaneous DAILY Qty: 100 RF: 3 (DME) blood-glucose meter [FaceAlerta Autocode Monitor Syst] misc See Dose Instructions .ROUTE .MEDSUPPLY Qty: 1 RF: 0 (DME) lancets [OneTouch UltraSoft Lancets] misc 1 ea Miscellaneous DAILY Qty: 100 RF: 3 sertraline 50 mg tablet 50 mg PO HS Qty: 90 RF: 3 fluticasone propionate [Flonase Allergy Relief] 50 mcg/actuation spray,suspension 1 spray GLORY DAILY Qty: 47.4 RF: 3 montelukast 10 mg tablet 10 mg PO HS Qty: 90 RF: 3 naltrexone 50 mg tablet 50 mg PO HS Qty: 90 RF: 4 acetaminophen 500 mg tablet 1,000 mg PO Q8H PRN (Reason: pain) Qty: 90 RF: 3 ibuprofen 600 mg tablet 600 mg PO TID PRNQty: 90 RF: 3 diazepam 5 mg tablet 5 mg PO Q8H PRN (Reason: pain and spasm) Qty: 12 RF: 0 Discharge Instructions Additional Instructions: Since you are taking Naltrexone (a ricardo of opiate receptors), opiate pain medications will not be very effective. You should be able to control pain with ice, Ibuprofen, and Tylenol. However, if you are having pain beyond this, Diazepam has been prescribed which can help with pain and muscle spasm. Please call for a refill of the Valium if needed. Stand Alone Forms: Carlos matthew/RCR Referrals: Darvin Gonzalez MD [ [facility] STAFF PHYSICIAN] - Equipment/Supplies: Sling Activity:: In sling except for hygiene and pendulums Remove Dressings/Wound Care:: 72 hours Shower/Bathe:: 72 hours Diet:: As Tolerated Discharge Orders Discharge Orders: Discharge Order (Routine); Ordered 10/31/19 Ordered By: Omaira Sanchez
[2019-10-31] MEDS: EPINEPHrine 30 MG/30 ML VIAL (08:33)
--- NOTE | 2019-11-01 09:37 | ROE_ITS ---
Date of service: 10/31/19 Time of Service: 10:37 Operative Note Operative Note DATE OF PROCEDURE: 10/31/19 PRE-OP DIAGNOSIS: Recurrent right rotator cuff tear POST-OP DIAGNOSIS: same PROCEDURE: Arthroscopic Right Rotator Cuff Repair SURGEON: Darvin Gonzalez HELP DESK OPERATOR: Gonzalo Javed ANESTHESIA: GETA and regional ESTIMATED BLOOD LOSS: 0 PATHOLOGY: none sent COMPLICATIONS: None Patient was transported to: PACU Patient's condition: stable Indications: I have seen Daksha in clinic for a painful shoulder. She previously had a rotator cuff repair about 3 months ago. In her initial recovery she slipped and almost fell while catching herself. She started having new pain and weakness since that point which has not resolved. Given failure of conservative options an MRI was performed which demonstrated recurrent tear of the rotator cuff. Nonoperative measures were exhausted but disability and pain persisted. I discussed shoulder arthroscopy and procedures. I reviewed the risks of the procedures to include, but not limited to, bleeding, infection, pain, stiffness, damage to nerves or vessels, recurrence, hardware failure, blood clot. Despite these risks, the patient elected to proceed. Findings: A diagnostic arthroscopy was performed with the following findings: Articular Side - Glenohumeral Joint: Grade 1 changes over the humeral head - Labrum: Blunting of the labrum where the anchor was previously. No labral tear. - Cuff: There was tissue attached to the greater tuberosity although it was quite thin and friable. The crescent appeared displaced medially. Sutures were seen within the cuff medially displaced to the tuberosity. 2 sutures were still within the cuff tissue and 2 arising from the anchor out of the tuberosity. - Biceps: Biceps was not present from previous tenotomy Subacromial Side - Bursal: Thickened inflammatory tissue seen. - Rotator Cuff: Friable attachment of the lateral rotator cuff with exposed tuberosity. This was easily penetrated and debrided down to show the true cuff edge margin medially displaced. Procedure Description: Daksha was greeted in the preoperative holding area where the correct side was identified and marked. The consent was reviewed with the patient and signed. The history and physical was updated. All questions were answered. Daksha was taken back to the PACU for administration of an intrascalene nerve block. Daksha was then taken to the operating room. The patient was placed into the supine position on the operating room table. A general anesthetic was administered. She was then positioned in the beach chair position. All bony prominences were well padded. The head was placed in a foam head of precision targeting in a neutral position. Prophylactic antibiotics in the form of cefazolin were administered. The right arm/shoulder was then prepped with Chloraprep and draped in a standard fashion with stockinette and shoulder drape. A timeout to confirm correct identity, side and site, procedure, allergies, anesthesia, and medical concerns was performed. The arm was placed into a pneumatic ramirez, [id number]. The shoulder arthroscopy was then performed. The glenohumeral joint was injected with 20 cc of normal saline with good flow back. A standard posterior portal was made and the joint was entered atraumatically with a blunt arthroscope. Once inside we had good visualization of the structures of the glenohumeral joint. An anterior portal was established with spinal needle localization. A 6.5 mm cannula was inserted. A probe was then used to perform a diagnostic arthroscopy. There is noted to be some mild grade 1 changes over the humeral head. The labrum was intact anteriorly and posteriorly. There were no loose bodies in the inferior pouch. The superior rotator cuff appeared intac t to the medial edge of the greater tuberosity. However, the tissue appeared quite friable. The crescent seemed medially displaced. There was also suture material seen within the rotator cuff and 2 sutures still attached to the tuberosity but pulled out of the rotator cuff. The biceps tendon was not present as expected. The subscapularis was intact. The rotator interval was debrided and opened up. Some of the inflammatory changes on the underside of the rotator cuff were debrided. The arthroscope was then inserted into the subacromial space. The 6.5 mm cannula was placed lateral to the CA ligament. An aggressive bursectomy was performed. The bursa was quite thickened throughout the entirety of the shoulder. The CA ligament was also very taut against the anterior rotator cuff. A complete bursectomy is performed anteriorly, posteriorly, and laterally with electrocautery and shaver. This had excellent exposure of the rotator cuff. The bursal side rotator cuff was inspected. This showed some friable attachment of the rotator cuff over the tuberosity with a portion of the lateral tuberosity exposed. A lateral working and viewing portal was established. This area of th e lateral rotator cuff was inspected and was easily penetrated with the probe. Using a shaver, this tissue was easily debrided which identified the true edge of the rotator cuff medial to this area. The tissue around it was debrided down to expose a crescent type rotator cuff tear. This was easily mobile. Unfortunately, the bone quality was quite poor. Therefore, I placed 2 Mitek Fastin metal anchors, 5 mm, along the medial row in between previous portal sites. The purchase was not very robust. However, they were tested by pulling on the sutures and they did not displace. For horizontal mattress sutures were then placed within the rotator cuff. This pulled the rotator cuff posterior to anterior and medial to lateral. There was excellent reduction of the rotator cuff tissue onto the tuberosity. These were tied using standard arthroscopic knot tying techniques. There is no longer any gap into the joint. Tuberosity was fully covered. Sutures were cut. Given her bone quality no attempt at a lateral row was performed. The scope equipment was removed from the shoulder. Excess fluid was evacuated. The portal sites were closed with 3-0 Monocryl. The wounds were dressed with Steri-Strips, 4 x 4's, ABDs, Medipore tape. A sling was applied. The patient tolerated the procedure well and was returned to the PACU in a stable condition suffering no known complication.
== END 2019-10-31 13:49 | disposition home or self-care (01) ==
PROVIDERS: PCP Family Medicine; Visit Provider Student in an Organized Health Care Education/Training Program
PROC: (CPT 29827; principal; 2019-10-31 07:30)
DX: S46.011A Strain of muscle(s) and tendon(s) of the rotator cuff of right shoulder, initial encounter (principal); W19.XXXA Unspecified fall, initial encounter; G89.18 Other acute postprocedural pain
CPT/HCPCS: 29827; 76942; C1713; NC; J0690; L3670

== ENCOUNTER 2019-12-15 10:45 | Outpatient (CLI) | payer BC, SELFPAY ==
[2019-12-15 17:06] LABS: HCT 38.4 % (36.0-46.0); HGB 13.1 g/dL (12.0-15.5); Mean Corp. HGB Concentration 34.1 g/dL (32.0-36.0); Mean Corpuscular Hemoglobin 31.1 pg (27.0-33.0); Mean Corpuscular Volume 91.2 fL (80-95); Mean Platelet Volume 9.9 fL (8.0-11.0); Platelet Count 404 x1000/uL (130-400); RBC 4.21 m/cumm (4.00-5.20); RBC Distribution Width 12.7 % (11.7-14.6); White Blood Cell Count 12.36 k/cumm (4.4-10.8)
[2019-12-15 17:27] LABS: ALT 30 U/L (14-59); AST 20 U/L (15-37); Albumin 4.2 g/dL (3.4-5.0); Alkaline Phosphatase 44 U/L (46-116); Anion Gap 11.7 mmol/L (3-11); BUN 10 mg/dL (7-18); Bilirubin, Total 0.3 mg/dL (0.2-1.0); CO2 24.3 mmol/L (21.0-32.0); CREATININE 0.61 mg/dL (0.55-1.02); Calcium 8.7 mg/dL (8.5-10.1); Chloride 99 mmol/L (98-107); Glucose 79 mg/dL (74-106); Potassium 4.1 mmol/L (3.5-5.1); Sodium 135 mmol/L (136-145); TSH (W/Ref FT4) 2.17 uIU/mL (0.36-3.74); Total Protein 6.9 g/dL (6.4-8.2)
[2019-12-16 14:15] LABS: Magnesium 1.9 mg/dL (1.8-2.4)
== END 2019-12-15 11:05 ==
DX: F32.9 Major depressive disorder, single episode, unspecified (principal); F41.9 Anxiety disorder, unspecified; G25.0 Essential tremor; R03.0 Elevated blood-pressure reading, without diagnosis of hypertension; R41.3 Other amnesia; R53.1 Weakness; R63.4 Abnormal weight loss; R73.03 Prediabetes; G47.00 Insomnia, unspecified
CPT/HCPCS: 36415; 80053; 85027; 83735; 84443

== ENCOUNTER 2020-01-23 09:54 | Outpatient (CLI) | payer BC, SELFPAY ==
[2020-01-23 13:34] LABS: Abs Immature Grans 0.02 k/cumm (0.0-0.09); Absolute Eosinophil Count 0.33 k/cumm (0.0-0.7); Absolute Lymphocyte Count 4.18 k/cumm (1.2-3.4); Absolute Monocyte Count 0.84 k/cumm (0.11-0.7); Basophils % 0.3; Eosinophils % 2.8; HCT 39.4 % (36.0-46.0); HGB 13.4 g/dL (12.0-15.5); Immature Grans % 0.2 %; Lymphocytes % 35.4; Mean Corpuscular Hemoglobin 31.5 pg (27.0-33.0); Mean Corpuscular Volume 92.7 fL (80-95); Mean Platelet Volume 9.7 fL (8.0-11.0); Monocytes % 7.1; Neutrophils % 54.2; Platelet Count 349 x1000/uL (130-400); RBC 4.25 m/cumm (4.00-5.20); RBC Distribution Width 12.9 % (11.7-14.6); White Blood Cell Count 11.81 k/cumm (4.4-10.8)
[2020-01-23 13:36] LABS: Absolute Basophil Count 0.04 k/cumm (0.0-0.2)
[2020-01-23 14:09] LABS: ALT 34 U/L (14-59); AST 20 U/L (15-37); Albumin 4.3 g/dL (3.4-5.0); Alkaline Phosphatase 53 U/L (46-116); Anion Gap 10.9 mmol/L (3-11); BUN 14 mg/dL (7-18); Bilirubin, Total 0.5 mg/dL (0.2-1.0); CO2 27.1 mmol/L (21.0-32.0); CREATININE 0.66 mg/dL (0.55-1.02); Chloride 98 mmol/L (98-107); Glucose 78 mg/dL (74-106); Sodium 136 mmol/L (136-145); Total Protein 7.3 g/dL (6.4-8.2)
== END 2020-01-23 10:14 ==
DX: F10.10 Alcohol abuse, uncomplicated (principal)
CPT/HCPCS: 36415; 80053; 85025

== ENCOUNTER 2024-05-06 11:00 | Outpatient (CLI) | payer MEDICARE, BC, SELFPAY ==
--- OUTSIDE RECORDS SUMMARY | 2024-05-06 11:02 | XMS_ITS | Continuity of Care Document ---
Author Name Unknown Organization [facility] Ambulatory Clinics Address [address] [place] [address] Care Team Providers Care Squeegee Finisher Name Role Phone JD SCHNEIDER APRN Primary Care Physician Encounter [facility] NBR [id number] Date(s): 10/23/23 - 10/23/23 [facility] Ambulatory Clinics [address] [place] [address]- [place] Discharge Disposition: Home Assessment and Plan Future Appointments Future Scheduled Tests Radiology* MRI Hip w/o Contrast Right 11/13/23 * MRI Spine Lumbar w/o Contrast 11/13/23 Medications Albuterol (Eqv-Ventolin HFA) 90 mcg/inh inhalation aerosol 18 g, 0 Refill(s), INHALE 2 PUFFS BY MOUTH FOUR TIMES A DAY USE WITH SPACER, 0 Refill(s) Start Date: 10/11/23 Status: Ordered Flovent Diskus 50 mcg inhalation powder See Instructions, 0 Refill(s) Start Date: 10/11/23 Status: Ordered fluticasone CFC free 110 mcg/inh inhalation aerosol 36 g, 0 Refill(s), INHALE 2 PUFFS BY MOUTH TWO TIMES A DAY FOR 12 DOSES, 0 Refill(s) Start Date: 10/11/23 Status: Ordered ipratropium 21 mcg/inh (0.03%) nasal spray 30 mL, 0 Refill(s), USE 2 SPRAYS IN EACH NOSTRIL EVERY 12 HOURS, 0 Refill(s) Start Date: 10/11/23 Status: Ordered Tylenol 325 mg =, 0 Refill(s) Start Date: 10/11/23 Status: Ordered Problem List Condition Confirmation Course Effective Dates Status Health St atus Informant Arthritis Confirmed Active Asthma Confirmed Active Joint pain Confirmed Active Patient Care team information Care Team Personnel Name: JD SCHNEIDER APRN Position: No Access Member Role: Primary Care Physician Address: Address: [address] [place], [place] [address]
--- OUTSIDE RECORDS SUMMARY | 2024-05-06 11:02 | XMS_ITS | Continuity of Care Document ---
Author Name Unknown Organization [facility] Ambulatory Clinics Address [address] [place] [address] Care Team Providers Care Manager Business Name Role Phone JD SCHNEIDER APRN Primary Care Physician Encounter [facility] NBR [id number] Date(s): 11/15/23 - 11/15/23 [facility] Ambulatory Clinics [address] [place] [address]- [place] Discharge Disposition: Home Assessment and Plan Future Appointments Appointment Date:01/02/2024 09:30:00 AM Scheduled Provider: Location:[facility] Appointment Type:Progress Note ([facility]) Medications Albuterol (Eqv-Ventolin HFA) 90 mcg/inh inhalation [...] Primary Care Physician Address: Address: [address] [place], [place] [address]
--- OUTSIDE RECORDS SUMMARY | 2024-05-06 11:02 | XMS_ITS | Continuity of Care Document ---
Author Name Unknown Organization [facility] Address [address] [place] [address] Care Team Providers Care Shoe Lacer Name Role Phone JD SCHNEIDER APRN Primary Care Physician Encounter [facility] NBR [id number] Date(s): 01/18/24 - 01/18/24 [facility] [address] [place] [address] [place] Encounter Diagnosis Myofascial low back pain(Discharge Diagnosis) - 01/18/24 Low back pain(Discharge Diagnosis) - 01/18/24 Lumbar spondylosis(Discharge Diagnosis) - 01/18/24 Facet arthropathy, lumbar(Discharge Diagnosis) - 01/18/24 Sacroiliac joint dysfunction(Discharge Diagnosis) - 01/18/24 Discharge Disposition: Home or Self Care Attending Physician: Amaris Pena DO Allergies, Adverse Reactions, Alerts Substance Reaction Severity Status buPROPion Unknown Unknown Active Cashew Nuts Unknown Moderate Active Assessment and Plan Extracted from: Title:Office Visit Note - Pain Management Author :Amaris Pena DO Date:01/18/24 Facet arthropathy, lumbar??M 47.816,??Lumbar spondylosis??M47.816 ?? Low back pain??M54.50,??Myofascial low back pain??M54.50 Ordered: Surgical Procedure Booking Request [facility], 01/18/24 16:14:00 EST, myofascial pain, Myofascial low back pain Low back pain, Outpatient, lumbar TPIs, Primary Procedure, 45, Diabetic, Local, 22, Amaris Pena, DO, Lumbar Trigger Point Injections ?? Sacroiliac joint dysfunction??M53.3 ? Daksha is here??for evaluation of back pain.?? When [facility], she described??intermittent right leg pain. ??She denies any recent right leg pain. ??The pain is across the low back??and alternates sides.?? MRI of the lumbar spine from November 2023 shows??multilevel degenerative??disc changes. ??There is no significant central stenosis.?? There??are varying degrees of mild foraminal narrowing at several levels. ??There is significant??arthritis of the facet joints which appears to be??worse at the lower lumbar levels.?? There is??mild dextroscoliosis. ?? We reviewed multiple potential back pain generators. ??The??predominant pain generator is not entirely clear. ??She describes??frequent low back spasms??and the??right??paraspinal musculature is much more prominent compared to the left side. ??There appears to be trigger points??along the taut muscular band.?? Reviewed the option to consider trigger point injections to the??lumbar paraspinal muscles. ??She does have some concerns about??receiving steroid injections given her history of??osteoporosis. ??Reviewed that we can perform trigger point injections utilizing??local anesthetic only. ??Reviewed that it is possible that even if she does experience significant relief??from the trigger point injections, it may potentially be??short-term relief given??that the underlying scoliosis is likely??going to??continue to trigger muscular pain.?? We also reviewed??option to consider diagnostic medial branch blocks to determine if she is a candidate for lumbar radiofrequency ablation.?? The procedure was described in detail. ??Risks and potential benefits of??both procedures were reviewed.?? Lastly, an SI joint??injection could be considered??as there are some exam findings that are suggestive of SI joint mediated pain. ?? After reviewing all the options, she would like to first trial??the lumbar trigger point injections. ??If no relief, she would next like to consider the??lumbar medial branch blocks to determine if she is a candidate for??RFA. ?? She plans to continue with physical therapy exercises. ??We also reviewed options??for medication trials including muscle relaxant to address the??muscle spasms. ??She is not interested in??medication trials at this time. ?? She will return for lumbar trigger point injections. ? Future Appointments Future Scheduled Tests Radiology* XR Spine Lumbosacral 4+ Views 12/11/23 Medications Albuterol (Eqv-Ventolin HFA) 90 mcg/inh inhalation [...] List Condition Confirmation Course Effective Dates Status H ealth Status Informant Arthritis Confirmed Active Asthma Confirmed Active Right hip pain Confirmed Active Joint pain Confirmed Active Right low back pain Confirmed Active Lumbar disc herniation with radiculopathy Confirmed Active Lumbar spondylosis Confirmed Active Procedures Procedure Date Related Diagnosis Body Site Status Appendectomy Completed Complete repair of rotator cuff Completed History of tonsillectomy Completed Rhinoplasty Completed Vital Signs Most recent to oldest [Reference Range]: 1 Temperature Temporal Artery [36-38 Deg C ] 36.5 Deg C (01/18/24 3:26 PM) Peripheral Pulse Rate [60-100 bpm] 79 bp m (01/18/24 3:26 PM) Blood Pressure [90-140/60-90 mmHg] 120/6 8mmHg (01/18/24 3:26 PM) Mean Arterial Pressure, Cuff [65-140 mmH g] 85 mmHg (01/18/24 3:26 PM) Weight 54.7 kg (01/18/24 3: PM) Weight Measured (lbs) 120.593 lb (01/18/24 3:26 PM) Weight Dosing 54.700 kg (01/18/24 3:26 PM) Social History Social History Type Response Tobacco Former tobacco user Tobacco Use:. Sex Physician Outpatient Note * Amaris Pena, DO: PERFORM, MODIFY, MODIFY Event Display: Office Clinic Note Physician Authored Date: [id number] DAKSHA WILSON :1950 Age:73 years Sex:Female Visit Date:01/18/2024 Primary Care Physician: JD SCHNEIDER APRN Chief Complaint Lower back pain History of Present Illness ?? Daksha is a very pleasant 73-year-old female who is here today for evaluation of low back pain.?? Her symptoms have been ongoing for??many years. The??back pain seems to alternate??back and forth??right or left side, perhaps slightly more frequent on the right side.?? She was experiencing intermittent radiation to the right leg when [facility] by Arlene Espinoza, MICHAEL inJanuary. ??However, she denies any recent right leg pain.?? The back pain is worse with lifting andclimbing stairs.?The pain can be better with??heat and massage. ??Pain level is rated??10.?? She is currently in physical therapy. ??Some of the PT exercises such as lumbar extension seem to aggravate her symptoms.?? Of note, she also has??left rib pain. ??She states she fractured a rib on theleft side several weeks ago??and she is still healing from this injury.?? She also describes chronic neck pain. ??There is no radicular arm pain??or numbness/tingling. ??She describes brief and infrequent episodes of tingling in the feet. ?? Review of Systems Gastrointestinal:?No bowel dysfunction Genitourinary:?No bladder dysfunction Musculoskeletal:??Positive for back pain,??neck pain Neurological: No new weakness, +??intermittent??numbness/tingling??in feet Physical Exam Vitals & Measurements T:??36.5?C ??(Temporal Artery)?? HR:??79??(Peripheral)?? BP:??120/68?? SpO2:??96%?? WT:??54.7??kg?? General: NAD HEENT: Facial movements symmetric Resp: Breathing comfortably, unlabored respirations Lumbar ROM: Fairly normal range of motion of the lumbar spine in flexion and extension without??significant discomfort +??tenderness to palpation of the lumbar??paraspinal muscles??right greater than left +??Tenderness over the right greater than left SI joint mild scoliotic curvature right mid to lower lumbar paraspinal muscles are hypertonic on the right side (likely related to scoliosis vs muscle spasm) Neuro: Motor:Strength is 5 out of 5 in the upper and lower extremities bilaterally including SA, EF, EE, WE, research executive and finger abduction, HF, KE, AD, EHL, PF Sensation:Intact to light touch in the upper and lower extremities bilaterally Reflexes: 1+ bilateral biceps, triceps, BR. Unable to obtain reflexes at patellar, achilles b/l.??Coy's negative b/l.??No clonus. Provocative tests: Straight leg raise does not reproduce leg pain Hips: groin discomfort with ER of left hip, otherwise no groin pain with ROM b/l SI joints: Fabienne's finger test positive right>left, HUMBERTO mildly positive, Gaenslen's positive Gait: normal Assessment/Plan Facet arthropathy, lumbar??M47.816,??Lumbar spondylosis??M47.816 ?? Low back pain??M54.50,??Myofascial low back pain??M54.50 Ordered: Surgical Procedure Booking Request [facility], 01/18/24 16:14:00 EST, myofascial pain, Myofascial low back pain Low back pain, Outpatient, lumbar TPIs, Primary Procedure, 45, Diabetic, Local, 22, Amaris Pena, DO, Lumbar Trigger Point Injections ?? Sacroiliac joint dysfunction??M53.3 ? Daksha is here??for evaluation of back pain.?? When she was [facility] in November,she described??intermittent right leg pain. ??She denies any recent right leg pain. ??The pain is across the low back??and alternates sides.?? MRI of the lumbar spine from November 2023 shows??multilevel degenerative??disc changes. ??There is no significant central stenosis.?? There??are varying degrees of mild foraminal narrowing at several levels. ??There is significant??arthritis of the facet joints which appears to be??worse at the lower lumbar levels.?? There is??mild dextroscoliosis. ?? We reviewed multiple potential back pain generators. ??The??predominant pain generator is not entirely clear. ??She describes??frequent low back spasms??and the??right??paraspinal musculature is muchmore prominent compared to the left side. ??There appears to be trigger points??along the taut muscular band.?? Reviewed the option to consider trigger point injections to the??lumbar paraspinal muscles. ??She does have some concerns about??receiving steroid injections given her history of??osteoporosis. ??Reviewed that we can perform trigger point injections utilizing??local anesthetic only. ??Reviewed that it is possible that even if she does experience significant relief??from the trigger point injections, it may potentially be??short-term relief given??that the underlying scoliosis is likely??going to??continue to trigger muscular pain.?? We also reviewed??option to consider diagnostic medial branch blocks to determine if she is a candidate for lumbar radiofrequency ablation.?? The pro cedure was described in detail. ??Risks and potential benefits of??both procedures were reviewed.??Lastly, an SI joint??injection could be considered??as there are some exam findings that are suggestive of SI joint mediated pain. ?? After reviewing all the options, she would like to first trial??the lumbar trigger point injections. ??If no relief, she would next like to consider the??lumbar medial branch blocks to determine if she is a candidate for??RFA. ?? She plans to continue with physical therapy exercises. ??We also reviewed options??for medication trials including muscle relaxant to address the??muscle spasms. ??She is not interested in??medication trials at this time. ?? She will return for lumbar trigger point injections. Images MRI lumbar spine images and report from 11/13/23 personally reviewed Problem List/Past Medical History Ongoing Arthritis Asthma Joint pain Lumbar disc herniation with radiculopathy Lumbar spondylosis Right hip pain Right low back pain Historical No qualifying data Procedure/Surgical History ???Appendectomy???Complete repair of rotator cuff???History of tonsillectomy???Rhinoplasty Medications Albuterol (Eqv-Ventolin HFA) 90 mcg/inh inhalation aerosol Flovent Diskus 50 mcg inhalation powder, See Instructions fluticasone CFC free 110 mcg/inh inhalation aerosol ipratropium 21 mcg/inh (0.03%) nasal spray Tylenol, 325 mg Allergies Cashew Nuts??(Unknown) buPROPion??(Unknown) Social History Alcohol Current, Wine, 1-2 times per month Electronic Cigarette/Vaping Electronic Cigarette Use: Never. Tobacco Former tobacco user Tobacco Use:. Family History Cardiovascular disease: Father. Hypertension: Father. Stroke: Mother. Electronically Signed on 01/18/24 04:47 PM Amaris Pena, Patient Care team information Care Team Personnel Name: JD SCHNEIDER APRN Position: No Access Member Role: Primary Care Physician Address: Address: [address] [place], [place] [address]
--- OUTSIDE RECORDS SUMMARY | 2024-05-06 11:02 | XMS_ITS | Continuity of Care Document ---
Author Name Unknown Organization [facility] Address [address] [place] [address] Care Team Providers Care Sales And Events Coordinator Name Role Phone JD SCHNEIDER APRN Primary Care Physician [phone] Encounter [facility] NBR [id number] Date(s): 11/13/23 - 11/13/[address] [address]- Encounter Diagnosis Idiopathic aseptic necrosis of right femur(Final) - Spinal stenosis, lumbar region with neurogenic claudication(Final) - Scoliosis, unspecified(Final) - Discharge Disposition: Home or Self Care Attending Physician: Katja Holloway APRN Admitting Physician: Katja Holloway APRN Referring Physician: Katja Holloway APRN Assessment and Plan Future Appointments Medications Albuterol (Eqv-Ventolin HFA) 90 mcg/inh inhalation [...] Asthma Confirmed Active Joint pain Confirmed Active Results Radiology Reports * Exam Date Time Procedure Performing Provider Status 11/13/23 1:58 PM MRI Hip w/o Contrast Right Liz Reeves L; Modified Notes: (MRI Hip w/o Contrast Right) Reason For Exam: hip pain MRI Hip w/o Contrast Right EXAM DESCRIPTION: MRI Hip w/o Contrast Right 11/13/2023 INDICATION: HIP PAIN TECHNIQUE: Multiplanar MRI examination of the right hip including large [id number] coronal T1, coronal fast STIR and axial T2-weighted images as well as small [id number] images utilizing PD and fat-suppressed PD technique. COMPARISON: Routine radiographs of the pelvis and hips from 10/11/2023 FINDINGS: No regional marrow edema to suggest bone contusion or occult fracture. No femoral head AVN on either side. No findings to suggest regional neoplastic marrow infiltration. No significant hip or SI joint arthritic changes. SI joints appear symmetric and pubic symphysis appears intact. No hip joint effusion on either side. No abnormal periarticular fluid to suggest bursitis Mild edema adjacent to the gluteus medius myotendinous junction bilaterally consistent with strain. Hamstring tendon origins appear intact with no findings to suggest strain or tendinosis. No findings to suggest cam type or pincer type right femoroacetabular impingement syndrome. Normal right hip alpha angle of 39 degrees No right acetabular labral tear identified. Right transverse ligament and ligamentum teres appear intact. IMPRESSION: No regional marrow edema or femoral head AVN on either side Findings consistent with mild gluteus medius myotendinous junction strain bilaterally. JOB #: [id number] Final Signed by: Nhan Jimenez MD Signed (Electronic Signature): 11/13/2023 3:09 pm * Exam Date Time Procedure Performing Provider Status 11/13/23 1:58 PM MRI Spine Lumbar w/o Contrast Roger Reeves L; Auth (Verified) Notes: (MRI Spine Lumbar w/o Contrast) Reason For Exam: eval lumbar stenosis MRI Spine Lumbar w/o Contrast EXAM DESCRIPTION: MRI Spine Lumbar w/o Contrast 11/13/2023 INDICATION: EVAL LUMBAR STENOSIS TECHNIQUE: Multiplanar MRI examination of the lumbar spine utilizing T1, fat-suppressed T2 and fast STIR technique. COMPARISON: None FINDINGS: Mild retrolisthesis at L2-3. Lumbar lordosis is otherwise satisfactory. Mild dextroscoliosis L5-S1: No focal disc protrusion, significant spinal stenosis or neural foraminal narrowing. Mild bilateral facet hypertrophy. AP spinal canal diameter is 16 mm L4-5: Mild diffuse disc bulge with central annular tear. Mild bilateral facet hypertrophy. No significant spinal stenosis with AP spinal canal diameter of 13 mm. Mild bilateral neural foraminal narrowing L3-4: Mild diffuse disc bulge with bilateral facet hypertrophy. No significant spinal stenosis with AP spinal canal diameter of 12 mm. Mild bilateral neural foraminal narrowing L2-3: Mild diffuse disc bulge with bilateral facet hypertrophy. No significant spinal stenosis with AP spinal canal diameter of 12 mm. Mild-moderate right neural foraminal narrowing. No significant left neural foraminal narrowing L1-2: Minimal diffuse disc bulge. No focal disc protrusion, significant spinal stenosis or neural foraminal narrowing. No significant stenosis in the visualized lower thoracic spine The conus is normal in morphology and signal intensity and terminates at the L1 level. No suspicious regional marrow lesions. Schmorl's node involving the superior endplate of the L4 vertebral body. No vertebral body compression deformity in the lumbar region. Degenerative endplate changes at some levels Paraspinal soft tissues are unremarkable. IMPRESSION: Mild spondylotic changes. No significant central stenosis. Neural foraminal narrowing noted at some levels. Please see above discussion for individual level description. Normal conus. JOB #: [id number] Final Signed by: Nhan Jimenez MD Signed (Electronic Signature): 11/13/2023 3:00 pm Patient Care team information Care Team Personnel Name: JD SCHNEIDER APRN Position: No Access Member Role: Primary Care Physician Address: Address: [address]
--- OUTSIDE RECORDS SUMMARY | 2024-05-06 11:02 | XMS_ITS | Continuity of Care Document ---
Author Name Unknown Organization [facility] Ambulatory Clinics Address [address] [place] [address] Care Team Providers Care Conditioning Yard Supervisor Name Role Phone JD SCHNEIDER APRN Primary Care Physician Encounter [facility] NBR [id number] Date(s): 03/13/24 - 03/13/24 [facility] Ambulatory Clinics [address] [place] [address] us Encounter Diagnosis Chronic low back pain(Discharge Diagnosis) - 03/13/24 Other chronic pain(Discharge Diagnosis) - 03/13/24 Myofascial pain syndrome of lumbar spine(Discharge Diagnosis) - 03/13/24 Discharge Disposition: Home or Self Care Attending Physician: Amaris Pena DO Referring Physician: JD SCHNEIDER APRN Allergies, Adverse Reactions, Alerts Substance Reaction Severity Status buPROPion Unknown Unknown Active Cashew Nuts Unknown Moderate Active Assessment and Plan Extracted from: Title:[facility] Office Visit and Procedure Note Autho r:Amaris Pena DO Date:03/13/24 Chronic low back pain??M54.5 0 Myofascial pain syndrome of lumbar spine??M79.18 ?? s/p trigger point injections today to the lumbar region. No complications. ??She reports reduction in pain postprocedure.?? If she experiences at least 50%??improvement??for at least 2 weeks, she would be a candidate??for repeat??trigger point injections.?? Depending on her response, could consider utilizing??steroid with repeat injection to see if she may potentially experience long-term relief. ??SI joint injection is another future consideration.? She was advised to call the office in about 3 weeks to??update us on her response to today's procedure so that we can determine next steps. ? Future Appointments Future Scheduled Tests Radiology* XR Spine Lumbosacral 4+ Views 12/11/23 Medications Albuterol (Eqv-Ventolin HFA) 90 mcg/inh inhalation aerosol 18 g, 0 Refill(s), INHALE 2 PUFFS BY MOUTH FOUR TIMES A DAY USE WITH SPACER, 0 Refill(s) Start Date: 10/11/23 Status: Ordered conjugated estrogens 0.625 mg/g vaginal cream with applicator 0 Refill(s) Start Date: 03/13/24 Status: Ordered fluticasone CFC free 110 mcg/inh [...] Temperature Temporal Artery [36-38 Deg C ] 36.3 Deg C (03/13/24 2:27 PM) Peripheral Pulse Rate [60-100 bpm] 94 bp m (03/13/24 2:27 PM) Respiratory Rate [12-24 br/min] 20 br/mi n (03/13/24 2:27 PM) Blood Pressure [90-140/60-90 mmHg] 110/8 0mmHg (03/13/24 2:27 PM) Mean Arterial Pressure, Cuff [65-140 mmH g] 90 mmHg (03/13/24 2:27 PM) Social History Social History Type Response Tobacco Former tobacco user Tobacco Use:. Sex Discharge instructions * Event Display: Discharge Instructions Physician Outpatient Note * Amaris Pena, DO: PERFORM, MODIFY, MODIFY Event Display: Office Clinic Note Physician Authored Date: [id number] DAKSHA WILSON :1950 Age:73 years Sex:Female Visit Date:03/13/2024 Primary Care Physician: JD SCHNEIDER APRN Chief Complaint a lumbar injection to alleviate my pain History of Present Illness ?? Daksha is here for lumbar trigger point injections to address??low back pain.?? She is accompanied by her son today. There appears to be a myofascial component of pain in the setting of??mild scoliosis.?? She denies any significant change in her symptoms since she was last evaluated. ??She describes an occasional heaviness sensation??in the distal right leg and mild weakness in the hip region.??She has been working with physical therapy and she feels that she is getting??stronger??although some of the exercises seem to flareup??back pain. ?? We discussed performing the trigger point??injections utilizing lidocaine 1% with or without steroid. ??Patient has a history of osteopenia and she??was concerned about??steroids??and the potential effect on??bone health.?We agreed to move forward with the planned procedure using local anesthetic only. Review of Systems Constitutional:?No fevers/chills Musculoskeletal:??Positive for back pain Neurological: No focal weakness, no new numbness/tingling Physical Exam Vitals & Measurements T:??36.3?C ??(Temporal Artery)?? HR:??94??(Peripheral)?? RR:??20?? BP:??110/80?? SpO2:??97%?? General: NAD Resp: Breathing comfortably, unlabored respirations Lumbar:taut muscular bands with trigger points noted in the lumbar region Neuro: Motor:Strength is 5 out of 5 lower extremities bilaterally Sensation:Intact to light touch in the lower extremities bilaterally Gait: normal Procedure Lumbar??Trigger Points Injections Diagnosis: myofascial pain ?? There were no??medical, pharmacologic, radiographic or other contraindications to attempting trigger point injections. ??Verbal and written consent obtained today. ??Reviewed the risks including but not limited to infection, bleeding, nerve injury, allergic reaction to medication, side effect of the steroid, might not help, worsening pain postinjection,??pneumothorax. All questioned answered and she elected to proceed. ?? Procedure: ?? After risks and benefits were explained to the patient in detail, the patient agreed to proceed with trigger point injections. ??Standard timeout procedure was performed. ??After??identifying triggerpoints by palpation and sterilizing the skin with??ChloraPrep solution, a 27 gauge needle was placed into each trigger point. After negative aspiration, an aliquot of??5mL lidocaine 1%??was injected into each trigger point. Multiple passes??through the muscles were completed.?The needle was withdrawn and there were no complications. ? A total of??8??trigger point injections??were performed to the??lumbar paraspinals ?? Preprocedure pain score:?? 3/10 Postprocedure pain score:?? 0/10 Assessment/Plan Chronic low back pain??M54.50 Myofascial pain syndrome of lumbar spine??M79.18 ?? s/p trigger point injections today to the lumbar region. No complications. ??She reports reduction in pain postprocedure.?? If she experiences at least 50%??improvement??for at least 2 weeks, she would be a candidate??for repeat??trigger point injections.?? Depending on her response, could consider utilizing??steroid with repeat injection to see if she may potentially experience long-term relief.??SI joint injection is another future consideration.? She was advised to call the office in about 3 weeks to??update us on her response to today's procedure so that we can determine next steps. Problem List/Past Medical History Ongoing Arthritis Asthma Joint pain Lumbar disc herniation with radiculopathy Lumbar spondylosis Right hip pain Right low back pain Historical No qualifying data Procedure/Surgical History ???Appendectomy???Complete repair of rotator cuff???History of tonsillectomy???Rhinoplasty Medications Albuterol (Eqv-Ventolin HFA) 90 mcg/inh inhalation aerosol conjugated estrogens 0.625 mg/g vaginal cream with applicator Flovent Diskus 50 mcg inhalation powder, See Instructions fluticasone CFC free 110 mcg/inh inhalation aerosol ipratropium 21 mcg/inh (0.03%) nasal spray Tylenol, 325 mg Allergies Cashew Nuts??(Unknown) buPROPion??(Unknown) Social History Alcohol Current, Wine, 1-2 times per month Electronic Cigarette/Vaping Electronic Cigarette Use: Never. Tobacco Former tobacco user Tobacco Use:. Family History Cardiovascular disease: Father. Hypertension: Father. Stroke: Mother. Electronically Signed on 03/13/24 04:03 PM Amaris Pena DO Patient Care team information Care Team Personnel Name: JD SCHNEIDER APRN Position: No Access Member Role: Primary Care Physician Address: Address: [address] [facility], [place] [address]
--- OUTSIDE RECORDS SUMMARY | 2024-05-06 11:02 | XMS_ITS | Continuity of Care Document ---
Author Name Unknown Organization [facility] Address [address] [place] [address] Care Team Providers Care Principal Embedded Software Engineer Name Role Phone JD SCHNEIDER APRN Primary Care Physician Encounter [facility] NBR [id number] Date(s): 01/10/24 - 01/10/[address] [address]- [place] Encounter Diagnosis Unspecified superficial injuries of left front wall of thorax, initial encounter (Final) - Discharge Disposition: Home or Self Care Attending Physician: MARTINEZ Roth Admitting Physician: MARTINEZ Roth Allergies, Adverse Reactions, Alerts Substance Reaction Severity Status buPROPion Unknown Unknown Active Cashew Nuts Unknown Moderate Active Assessment and Plan Future Appointments Future Scheduled Tests Radiology* XR [...] EVERY 12 HOURS, 0 Refill(s) Start Date: 11/30/23 Status: Ordered Tylenol 325 mg =, 0 [...] Completed History of tonsillectomy Completed Rhinoplasty Completed Results Radiology Reports * Exam Date Time Procedure Performing Provider Status 01/10/24 11:38 AM XR Chest 2 Views Kamryn Spaulding; Auth (Verified) Notes: (XR Chest 2 Views) Reason For Exam: Left chest wall injury XR Chest 2 Views EXAM DESCRIPTION: XR Chest 2 Views 01/10/2024 INDICATION: LEFT CHEST WALL INJURY COMPARISON: None FINDINGS: Clear lungs with no focal infiltrate or pulmonary edema. Normal cardiomediastinal contour. Normal pleural margins with no pleural effusion or pneumothorax. Mild thoracolumbar scoliosis with mild spondylotic changes. IMPRESSION: No active chest disease. JOB #: [id number] Final Signed by: Nhan Jimenez MD Signed (Electronic Signature): 01/10/2024 11:46 am Social History Social History Type Response Tobacco Former tobacco user Tobacco Use:. Sex Patient Care team information Care Team Personnel Name: JD SCHNEIDER APRN Position: No Access Member Role: Primary Care Physician Address: Address: [address]
--- OUTSIDE RECORDS SUMMARY | 2024-05-06 11:02 | XMS_ITS | Continuity of Care Document ---
Author Name Unknown Organization [facility] Ambulatory Clinics Address [address] [place] [address] Care Team Providers Care Med Dir Name Role Phone JD SCHNEIDER APRN Primary Care Physician [phone] Encounter [facility] NBR [id number] Date(s): 12/11/23 - 12/11/23 [facility] Ambulatory [facility]ics [address] [place], [place] [address] Encounter Diagnosis Lumbar spondylosis(Discharge Diagnosis) - 12/11/23 Lumbar disc herniation with radiculopathy(Discharge Diagnosis) - 12/11/23 Right low back pain(Discharge Diagnosis) - 12/11/23 Right hip pain(Discharge Diagnosis) - 12/11/23 Discharge Disposition: Home or Self Care Attending Physician: MACKENZIE Meza Referring Physician: Katja Holloway APRN Allergies, Adverse Reactions, Alerts Substance Reaction Severity Status buPROPion Unknown Unknown Active Cashew Nuts Unknown Moderate Active Assessment and Plan Extracted from: Title:Office Visit Note Author:CUAUHTEMOC Meza Date:12/11/23 1.??Lumbar spondylosis??M47. 816 Ordered: XR Spine Lumbosacral 4+ Views, 12/11/23, Routine, Reason: lumbar spondylosis, AP/Lat and FLEX/EXT, Transport Mode: Ambulatory, Lumbar spondylosis, ABN Status: Not Required ?? 2.??Lumbar disc herniation with radiculopathy??M51.16 ?? 3.??Right low back pain??M54.50 ?? 4.??Right hip pain??M25.551 ?? The patient has been struggling with right-sided low back pain as well as right lateral hip and anterior hip pain??since she was carrying a heavy pot on stairs back around August or September.?? While the pain has improved in severity it is still present.?? She endorses that she was having more discomfort in the right thigh initially. ??This is consistent with??the far lateral right??disc herniation at L3-4.?? Fortunately, this thigh pain has improved and again the severity of her pain has improved.?? On her physical examination she also has tenderness over the right SI joint as well as the right greater trochanteric bursa.?? She has had issues with these issues in the past.?? The lumbar spine MRI does show multilevel degenerative and spondylotic changes with varying degrees of lateral recess and neuroforaminal narrowing.?? We discussed that??low back pain is often multifactorial and therefore more difficult to localize. ??Therefore, it is more difficult to recommend surgical correction for low back pain if we are not??very confident where the pain is originating from. ??It is possible that the spondylotic changes in the lumbar spine are contributing to her low back pain.?? The facets on the right at L4-5 and L5- S1 do appear larger than the left.?? We discussed treatment options moving forward. ??She is doing physical therapy. ??She is requesting referral to physical therapy here at [facility] where she would likely benefit from lumbar traction therapy as well as??adjunct??modalities??for which she is very interested including dry needling, massage, etc.?? I will place a referral.?? We also discussed that she may benefit from various injections including SI joint injection. ??She has done well with GT bursa injections in the past as well. ??If these do not??improve her symptoms, she may also benefit from medial branch blocks and possible RFL. ??The patient would like referral to the pain clinic. Plan: Referral to physical therapy. Referral to the pain clinic for consideration of injections. ? Future Appointments Future Scheduled Tests Radiology* XR Spine Lumbosacral 4+ Views 12/11/23 Functional Status 12/11/23 Recent Travel History No recent travel Medications Albuterol (Eqv-Ventolin HFA) 90 mcg/inh inhalation [...] [36-38 Deg C ] 36.3 Deg C (12/11/23 11:19 AM) Apical Heart Rate [60-100 bpm] 84 bpm (12/11/23 11:19 AM) Blood Pressure [90-140/60-90 mmHg] 130/9 0mmHg (12/11/23 11:19 AM) Mean Arterial Pressure, Cuff [70-110 mmH g] 103 mmHg (12/11/23 11: AM) Weight 56.5 kg (12/11/23 11: AM) Weight Measured (lbs) 124.561 lb (12/11/23 11: AM) Weight Dosing 56.500 kg (12/11/23 11: AM) [place] Body Weight Calculated 50.1 kg (12/11/23: AM) Height 157.48 cm (12/11/23 11:19 AM) Height/Length Measured (inches) 62 inch (12/11/23 11:19 AM) BSA Measured 1.57 m2 (12/11/23 11:19 AM) Body Mass Index 22.78 kg/m2 (12/11/23 11:19 AM) Social History Social History Type Response Tobacco Former tobacco user Tobacco Use:. Sex Physician Outpatient Note * MACKENZIE Meza: PERFORM Event Display: Office Clinic Note Physician Authored Date: [id number] ROMAIN WILSON :1950 Age:73 years Sex:Female Visit Date:12/11/2023 Primary Care Physician: JD SCHNEIDER APRN Chief Complaint RIGHT HIP PAIN AND MARIE PAIN History of Present Illness The patient presents for evaluation of her right low back and hip pain.?? The patient was referred by Katja Smith for evaluation of her lumbar spine. ??The patient reports that she has a long history of??bursitis affecting the right hip??and this typically responds well to physical therapy injections.?? Around August or September the patient was doing some heavy lifting and was carrying a large and heavy pot on some stairs??and immediately felt increased pain in the right back and??hip.?? She has had intermittent issues with her low back in the past but??she utilizes??exercises that she has been taught in physical therapy in the past and this tends to work very well.?? She is also had sacroiliac problems in the past.?? Her pain is in the right low back??and will wrap around to the right lateral and anterior hip.?? She was having some discomfort affecting more of the right thigh as well.?? She also has what she describes as a weird sensation or heaviness in the right lateral lower leg.?? While she continues to have the pain in these distributions it is much less than it was??in the fall.?? She finds that carrying any weight or going up or down hill are particularly bothersome.??She is very active individual enjoys walking??and hiking.?? 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 She takes Tylenol as needed when the pain is more severe and that is helpful. ??She is also utilizing multiple forms of cannabis and CBD topical??medications which do provide relief but this is very temporary.?? She has done deep tissue massage and??also gone to the??[employer] and that has been helpful. ??She recently saw a chiropractor for her first visitand they are doing some soft tissue work.?? She has also started physical therapy??and was referred??to [facility]??by orthopedics.?? Review of Systems Relevant ROS discussed in HPI Physical Exam Vitals & Measurements T:??36.3?C ??(Temporal Artery)?? HR:??84??(Apical)?? BP:??130/90?? SpO2:??98%?? HT:??157.48??cm?? WT:??56.5??kg?? BMI:??22.78?? BSA:??1.57?? GENERAL:?General Appearance:?pleasant, age appropriate in no apparent distress.?? MUSCULOSKELETAL:?Musculoskeletal:??No lumbar spine or lumbar paraspinal muscle tenderness.?? Mild tenderness over the right SI joint as well as the right greater trochanteric bursa. ??Full range of motion of bilateral hips though??right hip??flexion, internal and external rotation do produce increased anterior right hip pain. NEUROLOGICAL:?Neurological:?? Negative straight leg bilaterally. ?Motor:?Strength 5/5 with bilateral hip flexion, knee flexion and extension, ankle dorsiflexion and plantar flexion.?Reflexes:?1+ and symmetric in biceps, triceps, brachioradialis,??knees?? bilaterally??with??Jendrassik maneuver. ??Unable to elicit bilateral ankle jerks??even with??Jendrassik maneuver. ? Tone: normal? Gait:?normal.? Assessment/Plan 1.??Lumbar spondylosis??M47.816 Ordered: XR Spine Lumbosacral 4+ Views, 12/11/23, Routine, Reason: lumbar spondylosis, AP/Lat and FLEX/EXT, Transport Mode: Ambulatory, Lumbar spondylosis, ABN Status: Not Required ?? 2.??Lumbar disc herniation with radiculopathy??M51.16 ?? 3.??Right low back pain??M54.50 ?? 4.??Right hip pain??M25.551 ?? The patient has been struggling with right-sided low back pain as well as right lateral hip and anterior hip pain??since she was carrying a heavy pot on stairs back around August or September.?? While the pain has improved in severity it is still present.?? She endorses that she was having more discomfort in the right thigh initially. ??This is consistent with??the far lateral right??disc herniati on at L3-4.?? Fortunately, this thigh pain has improved and again the severity of her pain has improved.?? On her physical examination she also has tenderness over the right SI joint as well as the right greater trochanteric bursa.?? She has had issues with these issues in the past.?? The lumbar spine MRI does show multilevel degenerative and spondylotic changes with varying degrees of lateral recess and neuroforaminal narrowing.?? We discussed that??low back pain is often multifactorial and therefore more difficult to localize. ??Therefore, it is more difficult to recommend surgical correction for low back pain if we are not??very confident where the pain is originating from. ??It is possible that the spondylotic changes in the lumbar spine are contributing to her low back pain.?? The facets on the right at L4-5 and L5-S1 do appear larger than the left.?? We discussed treatment optionsmoving forward. ??She is doing physical therapy. ??She is requesting referral to physical therapy here at [facility] where she would likely benefit from lumbar traction therapy as well as??adjunct??modalities??for which she is very interested including dry needling, massage, etc.?? I will place a referral.?? We also discussed that she may benefit from various injections including SI joint injection. ??She has done well with GT bursa injections in the past as well. ??If these do not??improve her symptoms, she may also benefit from medial branch blocks and possible RFL. ??The patient would like referral to the pain clinic. Plan: Referral to physical therapy. Referral to the pain clinic for consideration of injections. Future Orders XR Spine Lumbosacral 4+ Views, 12/11/23, Routine, Reason: lumbar spondylosis, AP/Lat and FLEX/EXT, Transport Mode: Ambulatory, Lumbar spondylosis, ABN Status: Not Required Referral Orders Referral Management, Medical Service: Pain Management, Reason: Right low back pain, right lateral and anterior hip pain, Start: 12/11/23, Instructions: [facility] Referral Management, Medical Service: Physical Therapy, Reason: Right low back and hip pain, known multilevel lumbar degeneration and spondylosis. The patient is interested in lumbar traction but also open to multiple other modalities of therapy. She is requesting an... Problem List/Past Medical History Ongoing Arthritis Asthma [...] Cardiovascular disease: Father. Hypertension: Father. Stroke: Mother. Diagnostic Results Diagnostic Study Interpretation: There is a mild dextroscoliosis in the lumbar spine.?? There is a mild retrolisthesis of L2 over L3.?? There are degenerative disc changes at multiple levels but most pronounced at the L2-3 and L3-4 level.?? At L3-4 there is also Schmorl's node.?? At L2-3 in addition to the disc degeneration there are also Modic endplate changes.?? At L2-3 there is a diffuse disc bulge with bilateral facet and ligamentum flavum hypertrophy causing mild bilateral lateral recess stenosis.?? At L3-4 there is a mild diffuse disc bulge with a far right lateral disc protrusion as well as bilateral facet hypertrophycausing mild bilateral lateral recess stenosis, mild left neuroforaminal narrowing and moderate right neuroforaminal narrowing that is far lateral.?? At L4-5 there is mild diffuse disc bulge with bilateral facet and ligamentum flavum hypertrophy causing mild bilateral lateral recess stenosis.?? At L5-S1 there are bilateral facet changes but no central or foraminal stenosis.?? The facet hypertrophy is more pronounced at L4-5 and L5-S1 on the right. Electronically Signed on 12/11/23 03:24 PM MACKENZIE Meza Patient Care team information Care Team Personnel Name: JD SCHNEIDER APRN Position: No Access Member Role: Primary Care Physician Address: Address: [address] [place], [place] [address]
--- OUTSIDE RECORDS SUMMARY | 2024-05-06 11:02 | XMS_ITS | Continuity of Care Document ---
Author Name Unknown Organization [facility] Address [address] [place] [address] Care Team Providers Care Hogshead Builder Name Role Phone JD SCHNEIDER APRN Primary Care Physician [phone] Encounter [facility] NBR [id number] Date(s): 10/11/23 - 10/11/[address] [address]- Encounter Diagnosis Osteoarthritis of hips, bilateral(Discharge Diagnosis) - 10/11/23 Discharge Disposition: Home or Self Care Attending Physician: Katja Holloway APRN Admitting Physician: Katja Holloway APRN Referring Physician: Katja Holloway APRN Medications Albuterol (Eqv-Ventolin HFA) 90 mcg/inh inhalation [...] Exam Date Time Procedure Performing Provider Status 10/11/23 10:10 AM XR Hips 2 Views w/AP Pelvis Bilat Jordi Schofield; Marii (Verified) Notes: (XR Hips 2 Views w/AP Pelvis Bilat) Reason For Exam: hip pain XR Hips 2 Views w/AP Pelvis Bilat EXAM DESCRIPTION: XR Hips 2 Views w/AP Pelvis Bilat 10/11/2023 INDICATION: HIP PAIN TECHNIQUE: Pelvis and bilateral hips, five views COMPARISON: 02/13/2017 IMPRESSION: No acute fracture or dislocation. SI joints appear symmetric and pubic symphysis appears intact. No significant hip arthritic changes. Hip joint spaces are well maintained No focal lytic or sclerotic lesion Spondylotic changes and scoliosis in the visualized lumbar spine. JOB #: [id number] Final Signed by: Nhan Jimenez MD Signed (Electronic Signature): 10/11/2023 10:29 am Patient Care team information Care Team Personnel Name: JD SCHNEIDER APRN Position: No Access Member Role: Primary Care Physician Address: Address: [address]
--- OUTSIDE RECORDS SUMMARY | 2024-05-06 11:02 | XMS_ITS | Continuity of Care Document ---
Author Name Unknown Organization [facility] Ambulatory Clinics Address [address] [place] [address] Care Team Providers Care Reliner Name Role Phone JD SCHNEIDER APRN Primary Care Physician Encounter [facility] NBR [id number] Date(s): 10/11/23 - 10/11/23 [facility] Ambulatory Clinics [address] [place] [address]- [place] Encounter Diagnosis Lumbar stenosis with neurogenic claudication(Discharge Diagnosis) - 10/11/23 Scoliosis(Discharge Diagnosis) - 10/11/23 Avascular necrosis of hip(Discharge Diagnosis) - 10/11/23 Discharge Disposition: Home or Self Care Attending Physician: Katja Holloway APRN Referring Physician: JD SCHNEIDER APRN Medications Albuterol (Eqv-Ventolin HFA) 90 mcg/inh [...] Asthma Confirmed Active Joint pain Confirmed Active Vital Signs Most recent to oldest [Reference Range]: 1 Peripheral Pulse Rate [60-100 bpm] 74 bp m (10/11/23 10:22 AM) Blood Pressure [90-140/60-90 mmHg] 118/7 8mmHg (10/11/23 10:22 AM) Mean Arterial Pressure, Cuff [70-110 mmH g] 91 mmHg (10/11/23 10:22 AM) Weight 56.70 kg (10/11/23 10:22 AM) Weight Measured (lbs) 125.002 lb (10/11/23 10:22 AM) Weight Dosing 56.700 kg (10/11/23 10: AM) Height 158.75 cm (10/11/23 10: AM) Height/Length Measured (inches) 62.5 inc h (10/11/23 10:22 AM) BSA Measured 1.58 m2 (10/11/23 10:22 AM) Body Mass Index 22.5 kg/m2 (10/11/23 10:22 AM) Physician Outpatient Note * Katja Holloway APRN: PERFORM Event Display: Office Clinic Note Physician Authored Date: [id number] DAKSHA WILSON :1950 Age:72 years Sex:Female Visit Date:10/11/2023 Primary Care Physician: JD SCHNEIDER APRN Chief Complaint bilateral hip pain History of Present Illness Chief complaint:??Daksha is a 72-year-old female, here today with her son who is an x-ray tech, for evaluation of??right hip and low back discomfort. ??She states she has had trouble with trochanteric bursitis for quite a long time, she has had multiple injections. ??She also describes??right groin discomfort and occasional anterior thigh pain, low back discomfort and leg heaviness. ??She doeswant me to know that she has been on multiple steroid inhalers and fluticasone.?? Also tells me that she??was a smoker in the past and??did drink.?? At any rate she is here today for evaluation of??more right hip pain??and low back discomfort. ??She states she tried to go hiking recently and her legs felt heavy, she has numbness tingling in both feet, and again right hip discomfort. ?? Cause:?? plant pot about a month ago, low back and right hip??pain,??fairly chronic over time as well. ?? Treatment:?? CSIs?? over the years, physical therapy in past and did not have good luck initially ?? Symptoms: stairs, carrying any weight, rolling over and sleeping, no radicular pain, no trouble with ROM, groin pain, no buttock, some anterior thigh ?? 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 Any rate she is here today for orthopedic evaluation she had x-rays of bilateral hips??prior to this appointment.?? She was self-referred. Review of Systems Constitutional:?No??fevers,?No??chills,?No??sweats Eye:?No??recent visual problems ENT:?No??ear pain,?No??nasal congestion,?No??sore throat Respiratory:?No??shortness of breath,?No??cough Cardiovascular:?No??Chest pain,?No??palpitations,?No??syncope Gastrointestinal:?Nonausea,?No??vomiting,?No??diarrhea Genitourinary:?No??hematuria Kip/Lymph:?No??bruising tendency,?No??swollen lymph glands Endocrine:?No??excessive thirst,??No??excessive hunger Musculoskeletal:??No??back pain,??No??neck pain,??Positive for??joint pain,??Positive for??muscle pain,??No??decreased range of motion Integumentary:?No??rash,?No??pruritus,?No??abrasions Neurologic: Alert & oriented X 4 Psychiatric:?No??anxiety,?No??depression Physical Exam Vitals & Measurements HR:??74??(Peripheral)?? BP:??118/78?? SpO2:??97%?? HT:??158.75??cm?? WT:??56.70??kg?? BMI:??22.5?? Pain Score:??3?? BSA:??1.58?? General: ??appears stated age, well dressed HEENT: no loss of hearing, normocephalic, EOMs intact Neuro: ??grossly intact, if indicated see specific neurology exam Psych: ??alert and oriented to place and time, pleasant, cooperative Dermatology: ??no gross open areas of skin-see exam of limb for specifics Lymphatics: ??no lymphedema of affected limb Gait: Normal Vascular: ??pulses distally of limb are 2+?? Musculoskeletal: Lumbar spine: She is able to toe and heel walk she is able to bend forward at her waist but this does cause right buttock pain.?? Right and left lateral tilt hand and knee with the low back discomfort.?? Strength testing??in sitting position L2-S1 5/5 DTRs at patella and Achilles even with distraction is 1/4 bilaterally.?? She is able to straight leg raise.?? Sensation is intact to light touch??L4-S1. Right hip: She is able to flex to 90,??external rotation 10 degrees with no discomfort internal rotation 5 degrees??with the buttock discomfort. ??There is slight tenderness to palpation at the trochanteric bursa and SI joint.?? A bit distally at the IT band as well Assessment/Plan 1.??Lumbar stenosis with neurogenic claudication??M48.062 2.??Scoliosis??M41.9 On AP pelvis??x-rays done here at [facility] I can see??scoliosis of the thoracolumbar spine. 3.??Avascular necrosis of hip??M87.059 X-rays are reviewed on [facility] system today which shows narrowing of the medial femoral acetabular joint space,??possibility of??avascular necrosis as well. ?? Daksha and I spent 45 minutes together today with 30 of those minutes spent reviewing her extensive history, the multiple injections and physical therapy appointment she has had for trochanteric bursitis??and low back discomfort,??she has had trouble with leg heaviness??as well as hip discomfort. ??She has been on multiple steroids in the past, smoker and drinker in the past as well.?? At this point??I think she is likely having symptoms of both the femoral acetabular joint and likely lumbar stenosis.?? Given that this is fairly chronic in nature over the past years I would like to moveforward with??further imaging of the lumbar spine MRI and right hip MRI.?? She is in agreement. ??We will try to get those??approved, I will call her with those results and make a more definitive plan of care once that is??obtained. ??Support was given all of her questions were answered at length today. Problem List/Past Medical History Ongoing No qualifying data Historical No qualifying data Medications No active medications Allergies No active allergies Health Maintenance ?Pending??(in the next year) ?Due?Adult Wellness Exam due?10/11/23?and every 1?years ?Alcohol Use Screening due?10/11/23?and every 1?years ?Annual Wellness Visit (Medicare) due?10/11/23?and every 1?years ?Bone Density Screening due?10/11/23?and every 2?years ?Breast Cancer Screening due?10/11/23?and every 2?years ?Colorectal Cancer Screening due?10/11/23?Variable frequency ?Depression Screening due?10/11/23?and every 1?years ?Fall Risk Screening due?10/11/23?and every 1?years ?Glaucoma Screening due?10/11/23?and every 1?years ?Hepatitis C Screening due?10/11/23?One-time only ?Initial Preventative Physical Examination (Medicare) due?10/11/23?One-time only ?Lipid Screening due?10/11/23?and every 5?years ?Satisfied??(in the past 1 year) ?Satisfied?Body Mass Index on?10/11/23.?Satisfied by Jayne Wilson ?? Electronically Signed on 10/11/23 11:31 AM Katja Holloway APRN Patient Care team information Care Team Personnel Name: JD SCHNEIDER APRN Position: No Access Member Role: Primary Care Physician Address: Address: [address] [place], [place] [address]
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
--- OUTSIDE RECORDS SUMMARY | 2024-05-06 11:02 | XMS_ITS | Continuity of Care Document ---
Author Name Unknown Organization [facility] Ambulatory Clinics Address [address] [place] [address] Care Team Providers Care Key Ringer Name Role Phone JD SCHNEIDER APRN Primary Care Physician Encounter [facility] NBR [id number] Date(s): 10/23/23 - 10/23/23 [facility] Ambulatory Clinics [address] [place] [address] [place] Discharge Disposition: Home Assessment and Plan [...] Primary Care Physician Address: Address: [address] [place], [place] [address]
--- OUTSIDE RECORDS SUMMARY | 2024-05-06 11:02 | XMS_ITS | Continuity of Care Document ---
Author Name Unknown Organization [facility] Ambulatory Clinics Address [address] [place] [address] Care Team Providers Care Multimedia Engineer Name Role Phone JD SCHNEIDER APRN Primary Care Physician [phone] Encounter [facility] NBR [id number] Date(s): 11/19/23 - 11/19/23 [facility] Ambulatory Clinics [address] [place] [address] [place] Discharge Disposition: Home Assessment and Plan Future Appointments Appointment Date:01/02/2024 09:30:00 AM Scheduled Provider: Location:[facility] Appointment Type:Progress Note ([facility]) Medications Albuterol (Eqv-Ventolin HFA) 90 mcg/inh inhalation [...] Primary Care Physician Address: Address: [address] [place], [place] [address]
--- OUTSIDE RECORDS SUMMARY | 2024-05-06 11:02 | XMS_ITS | Continuity of Care Document ---
Author Name Unknown Organization [facility] Ambulatory Clinics Address [address] [place] [address] Care Team Providers Care Anvil Worker Name Role Phone JD SCHNEIDER APRN Primary Care Physician Encounter [facility] NBR [id number] Date(s): 04/11/24 - 04/11/24 [facility] Ambulatory Clinics [address] [place] [address] [place] Discharge Disposition: Home Allergies, Adverse Reactions, Alerts Substance Reaction Severity Status buPROPion Unknown Unknown Active Cashew Nuts Unknown Moderate Active Assessment and Plan Future Scheduled Tests Radiology* XR Spine Lumbosacral [...] Completed History of tonsillectomy Completed Rhinoplasty Completed Social History Social History Type Response Tobacco Former tobacco user Tobacco Use:. Sex Patient Care team information Care Team Personnel Name: JD SCHNEIDER APRN Position: No Access Member Role: Primary Care Physician Address: Address: [address]
--- OUTSIDE RECORDS SUMMARY | 2024-05-06 11:02 | XMS_ITS | Continuity of Care Document ---
Author Name Unknown Organization [facility] Address [address] [place] [address] Care Team Providers Care Nursing Specialist Name Role Phone JD SCHNEIDER APRN Primary Care Physician Encounter [facility] NBR [id number] Date(s): 11/15/23 - 12/12/23 [facility] [address] [place] [address]- Encounter Diagnosis Low back pain, unspecified(Final) - Other chronic pain(Final) - Pain in right hip(Final) - Spinal stenosis, lumbar region with neurogenic claudication(Final) - Discharge Disposition: Home Attending Physician: Audra Matthews PT, DPT Admitting Physician: Katja Holloway APRN Referring Physician: Katja Holloway APRN Allergies, Adverse Reactions, Alerts Substance Reaction Severity Status buPROPion Unknown Unknown Active Cashew Nuts Unknown Moderate Active Assessment and Plan Future Appointments Future Scheduled Tests Radiology* XR Spine Lumbosacral 4+ Views 12/11/23 Functional Status 11/15/23 Prior ADL Status Independent Prior Mobility Status Independent Prior Instrumental ADL Level Independent Prior Cognitive-Communication Skills Ind ependent 11/15/23 Lives In Multilevel home Lives With Alone Patient's Responsibilities Rehab Communi ty mobility, 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 She states her son often gets to stay with her for a time in between his jobs (traveling x-ray tech). She enjoys hiking, kayaking, snow shoeing, gardening, and using the rowing machine. Number of Stairs Inside 13 Inside Stairs Rail Bilateral Number of Stairs Outside 13 Outside Stairs Rail Rail on left going u p Location Bed 1st floor Location Main Bathroom 1st floor Location Kitchen 1st floor Location Laundry Basement Medications Albuterol (Eqv-Ventolin HFA) 90 mcg/inh inhalation [...] Tobacco Former tobacco user Tobacco Use:. Sex Physical therapy Note * Kaia Han: PERFORM Event Display: Physical Therapy Rehab Note Authored Date: Patient Care team information Care Team Personnel Name: JD SCHNEIDER APRN Position: No Access Member Role: Primary Care Physician Address: Address: [address] [place], [place] [address]
[2024-05-06 11:27] LABS: Calculated LDL 141 mg/dL (<100); Cholesterol 246 mg/dL (<200); HDL Cholesterol 86 mg/dL (40-60); Triglyceride 98 mg/dL (<150)
== END 2024-05-06 11:01 | disposition home or self-care (01) ==
LOC: LBO 11:00
PROVIDERS: Visit Provider Internal Medicine
DX: K75.81 Nonalcoholic steatohepatitis (NASH) (principal); F10.10 Alcohol abuse, uncomplicated
CPT/HCPCS: 36415; 80061

== ENCOUNTER → 2024-10-02 09:55 | Outpatient (BNVA) | payer MEDICARE, BC, SELFPAY | PROVIDERS: PCP Internal Medicine; Visit Provider Podiatrist | DX: M79.671 Pain in right foot (principal); M79.672 Pain in left foot; M20.41 Other hammer toe(s) (acquired), right foot; M20.42 Other hammer toe(s) (acquired), left foot | CPT/HCPCS: 99213 ==

== ENCOUNTER → 2024-11-18 09:43 | Outpatient (BNVA) | payer MEDICARE, BC, SELFPAY | PROVIDERS: PCP Internal Medicine; Referring Provider Internal Medicine; Visit Provider Podiatrist | DX: M20.41 Other hammer toe(s) (acquired), right foot (principal); M20.42 Other hammer toe(s) (acquired), left foot; M79.671 Pain in right foot; M79.672 Pain in left foot | CPT/HCPCS: 99213 ==